=== PATIENT | female | born 1960 | race Asian ===

== ENCOUNTER 2018-05-23 19:13 | Inpatient (IN) | payer BC ==
[~2018-05-23] VITALS: Ht 160 cm; Wt 95.4 kg
[2018-05-23 19:13] VITALS: BP 128/71
[2018-05-23 20:00] VITALS: BP 128/71
[2018-05-23] MEDS ORDERED: DEXTROSE 50% WATER 50ML SYRINGE IV PRN (20:30)
[2018-05-23] MEDS ORDERED: MECLIZINE 25MG TABLET PO PRN (20:30)
[2018-05-23] MEDS ORDERED: ZOLPIDEM TARTRATE 5MG TABLET PO PRN (20:30)
[2018-05-23] MEDS ORDERED: ACETAMINOPHEN 325MG TABLET PO PRN (20:30)
[2018-05-23] MEDS ORDERED: NON FORMULARY PATIENT HOME MED XX SCH (20:30)
[2018-05-23] MEDS: BLOOD SUGAR DIAGNOSTIC STRIP TEST SCH (21:00)
[2018-05-23] MEDS ORDERED: EZETIMIBE 10MG TABLET PO SCH (21:15)
[2018-05-23] MEDS: ATORVASTATIN CALCIUM 40MG TABLET PO SCH (23:22)
[2018-05-23] MEDS: HYDRALAZINE HCL 25MG TABLET PO SCH (23:23)
[2018-05-23] MEDS: INSULIN LISPRO 100 UNITS/ML SUBCUT SCH (23:24)
[2018-05-24] MEDS ORDERED: DULA1.5P SQ (03:35)
[2018-05-24] MEDS ORDERED: IRBE300T42 MT (03:36)
[2018-05-24] MEDS: HYDRALAZINE HCL 25MG TABLET PO SCH ×3 (06:00→20:59)
[2018-05-24 06:39] LABS: HEMATOCRIT. 38.5 % (36.0-48.0); HEMOGLOBIN. 13.3 g/dL (12.0-16.0); MEAN CORPUSCULAR VOLUME 89.9 fL (81.0-99.0); MEAN PLATELET VOLUME 7.7 fl (7.4-10.4); PLATELET 273 x1000/uL (130-400); RED BLOOD CELL COUNT 4.28 mill/uL (4.2-5.4); RED CELL DISTRIBUTION WIDTH 14.1 % (11.6-14.6)
[2018-05-24] MEDS: BLOOD SUGAR DIAGNOSTIC STRIP TEST SCH ×4 (06:48→21:02)
[2018-05-24] MEDS: INSULIN LISPRO 100 UNITS/ML SUBCUT SCH ×4 (07:01→21:02)
[2018-05-24] MEDS: LEVOTHYROXINE SODIUM 125MCG TABLET PO SCH (07:03)
[2018-05-24 08:00] VITALS: BP 143/82
[2018-05-24] MEDS: GABAPENTIN 300MG CAPSULE PO SCH ×3 (08:41→17:04)
[2018-05-24] MEDS: CLOPIDOGREL 75MG TABLET PO SCH (08:41)
[2018-05-24] MEDS: DOCUSATE SODIUM 100MG CAPSULE PO SCH ×2 (08:41→17:04)
[2018-05-24] MEDS: DILTIAZEM HCL 120MG CAPSULE CD 24HR PO SCH (08:42)
[2018-05-24] MEDS: ASPIRIN 325MG EC TABLET PO SCH (08:42)
[2018-05-24] MEDS: FOLIC ACID 1MG TABLET PO SCH (08:42)
[2018-05-24] MEDS: INDAPAMIDE 1.25MG TABLET PO SCH (09:00)
[2018-05-24 12:06] LABS: PLATELET ESTIMATE NORMAL
[2018-05-24 15:22] LABS: CLARITY URINE CLEAR (CLEAR); COLOR URINE YELLOW (YELLOW); KETONES URINE NEGATIVE (NEGATIVE); LEUKOCYTE ESTERASE URINE 1+ (NEGATIVE); NITRITE URINE NEGATIVE (NEGATIVE); OCCULT BLOOD URINE NEGATIVE (NEGATIVE); PH URINE 6.5 (4.5-8.0); PROTEIN URINE 3+ (NEGATIVE); SPECIFIC GRAVITY URINE 1.016 (1.005-1.030); UROBILINOGEN URINE 0.2 E.U./dL (0.2-1.0)
[2018-05-24] MEDS: EZETIMIBE 10MG TABLET PO SCH (17:04)
[2018-05-24 20:00] VITALS: BP 133/74
[2018-05-24] MEDS: ATORVASTATIN CALCIUM 40MG TABLET PO SCH (20:59)
[2018-05-25] MEDS: BLOOD SUGAR DIAGNOSTIC STRIP TEST SCH ×4 (06:08→21:13)
[2018-05-25] MEDS: LEVOTHYROXINE SODIUM 125MCG TABLET PO SCH (06:08)
[2018-05-25] MEDS: HYDRALAZINE HCL 25MG TABLET PO SCH ×3 (06:09→21:13)
[2018-05-25] MEDS: INSULIN LISPRO 100 UNITS/ML SUBCUT SCH ×4 (06:11→21:34)
[2018-05-25 06:33] LABS: EOSINOPHILS % 2.8 % (0.0-5.0); HEMATOCRIT. 38.1 % (36.0-48.0); HEMOGLOBIN. 13.1 g/dL (12.0-16.0); LYMPHOCYTES % 44.9 % (20.0-50.0); MEAN CORPUSCULAR VOLUME 89.9 fL (81.0-99.0); MEAN PLATELET VOLUME 7.8 fl (7.4-10.4); MONOCYTES % 10.6 % (2.0-8.0); NEUTROPHILS % 40.7 % (40.0-76.0); PLATELET 257 x1000/uL (130-400); RED BLOOD CELL COUNT 4.24 mill/uL (4.2-5.4); RED CELL DISTRIBUTION WIDTH 13.6 % (11.6-14.6)
[2018-05-25] MEDS: DILTIAZEM HCL 120MG CAPSULE CD 24HR PO SCH (08:35)
[2018-05-25] MEDS: ASPIRIN 325MG EC TABLET PO SCH (08:36)
[2018-05-25] MEDS: GABAPENTIN 300MG CAPSULE PO SCH ×3 (08:36→17:16)
[2018-05-25] MEDS: CLOPIDOGREL 75MG TABLET PO SCH (08:36)
[2018-05-25] MEDS: FOLIC ACID 1MG TABLET PO SCH (08:36)
[2018-05-25] MEDS: DOCUSATE SODIUM 100MG CAPSULE PO SCH (08:36)
[2018-05-25 08:42] VITALS: BP 141/82
[2018-05-25] MEDS: MECLIZINE 25MG TABLET PO SCH ×3 (08:44→21:13)
[2018-05-25] MEDS: FOLIC ACID/VITAMIN B COMP W-C TABLET PO SCH (08:44)
[2018-05-25] MEDS: LOSARTAN POTASSIUM 25 MG TABLET PO SCH (08:44)
[2018-05-25] MEDS: DOCUSATE SODIUM 250MG CAPSULE PO SCH (08:45)
[2018-05-25] MEDS: INDAPAMIDE 1.25MG TABLET PO SCH ×2 (09:00→17:14)
[2018-05-25] MEDS ORDERED: GLIMEPIRIDE 2MG TABLET PO NR (09:15)
[2018-05-25 13:16] VITALS: BP 136/76
[2018-05-25] MEDS: EZETIMIBE 10MG TABLET PO SCH (17:16)
[2018-05-25] MEDS ORDERED: SODIUM CHL 0.45% + KCL 20MEQ/L 1,000 ML IV SCH (18:00)
[2018-05-25] MEDS: DEXT 5%/0.45% NACL KCL 20MEQ/L 1,000 ML IV SCH ×2 (19:16→22:42)
[2018-05-25 20:00] VITALS: BP 129/64
[2018-05-25 20:18] LABS: CLARITY URINE CLEAR (CLEAR); COLOR URINE YELLOW (YELLOW); KETONES URINE NEGATIVE (NEGATIVE); LEUKOCYTE ESTERASE URINE NEGATIVE (NEGATIVE); NITRITE URINE NEGATIVE (NEGATIVE); OCCULT BLOOD URINE NEGATIVE (NEGATIVE); PH URINE 6.5 (4.5-8.0); PROTEIN URINE 3+ (NEGATIVE); SPECIFIC GRAVITY URINE 1.012 (1.005-1.030); UROBILINOGEN URINE 0.2 E.U./dL (0.2-1.0)
[2018-05-25] MEDS: ATORVASTATIN CALCIUM 40MG TABLET PO SCH (21:13)
[2018-05-26] MEDS ORDERED: INDA1.255 MT (02:02)
[2018-05-26] MEDS ORDERED: LEVO125T8 MT (02:02)
[2018-05-26] MEDS ORDERED: ASPI-986 MT (02:02)
[2018-05-26] MEDS ORDERED: DILT240T12 PO (02:02)
[2018-05-26] MEDS ORDERED: ATOR10TA MT (02:03)
[2018-05-26] MEDS ORDERED: CLOP75TA16 MT (02:03)
[2018-05-26] MEDS: HYDRALAZINE HCL 25MG TABLET PO SCH ×3 (06:00→21:45)
[2018-05-26] MEDS: MECLIZINE 25MG TABLET PO SCH ×3 (06:00→21:29)
[2018-05-26] MEDS: GLIMEPIRIDE 2MG TABLET PO SCH (06:00)
[2018-05-26] MEDS: BLOOD SUGAR DIAGNOSTIC STRIP TEST SCH ×4 (06:00→21:33)
[2018-05-26] MEDS: LEVOTHYROXINE SODIUM 125MCG TABLET PO SCH (06:01)
[2018-05-26 07:12] LABS: CHLORIDE 112 mEq/L (98-107)
[2018-05-26 07:13] LABS: FOLIC ACID (FOLATE) SERUM >20 ng/mL ng/mL (>5.38)
[2018-05-26 07:15] VITALS: BP 129/64
[2018-05-26 07:19] LABS: LDL CHOLESTEROL 153 mg/dL (5-100)
[2018-05-26 07:20] LABS: HDL CHOLESTEROL 38 mg/dL (40-59)
[2018-05-26 07:24] LABS: VITAMIN B12 SERUM 627 pg/mL (211-911)
[2018-05-26] MEDS: DOCUSATE SODIUM 250MG CAPSULE PO SCH ×2 (09:00→09:05)
[2018-05-26] MEDS: INSULIN LISPRO 100 UNITS/ML SUBCUT SCH ×4 (09:00→21:00)
[2018-05-26] MEDS: CLOPIDOGREL 75MG TABLET PO SCH (09:04)
[2018-05-26] MEDS: FOLIC ACID/VITAMIN B COMP W-C TABLET PO SCH (09:05)
[2018-05-26] MEDS: ASPIRIN 325MG EC TABLET PO SCH (09:05)
[2018-05-26] MEDS: LOSARTAN POTASSIUM 25 MG TABLET PO SCH (09:05)
[2018-05-26] MEDS: FOLIC ACID 1MG TABLET PO SCH (09:05)
[2018-05-26] MEDS: GABAPENTIN 300MG CAPSULE PO SCH ×3 (09:05→16:53)
[2018-05-26] MEDS: INDAPAMIDE 1.25MG TABLET PO SCH (09:05)
[2018-05-26] MEDS: DILTIAZEM HCL 120MG CAPSULE CD 24HR PO SCH (09:06)
[2018-05-26] MEDS: DEXT 5%/0.45% NACL KCL 20MEQ/L 1,000 ML IV SCH (12:54)
[2018-05-26 14:20] VITALS: BP 137/70
[2018-05-26] MEDS: EZETIMIBE 10MG TABLET PO SCH (16:53)
[2018-05-26 20:00] VITALS: BP 108/59
[2018-05-26] MEDS: ATORVASTATIN CALCIUM 40MG TABLET PO SCH (21:28)
[2018-05-26] MEDS: TRULICITY 1.5 MG/0.5 ML SQ SCH (21:56)
[2018-05-27] MEDS: DEXT 5%/0.45% NACL KCL 20MEQ/L 1,000 ML IV SCH ×2 (01:48→21:15)
[2018-05-27] MEDS: MECLIZINE 25MG TABLET PO SCH ×3 (05:56→17:05)
[2018-05-27] MEDS: HYDRALAZINE HCL 25MG TABLET PO SCH ×3 (05:56→21:25)
[2018-05-27] MEDS: INSULIN LISPRO 100 UNITS/ML SUBCUT SCH ×4 (05:57→21:00)
[2018-05-27] MEDS: BLOOD SUGAR DIAGNOSTIC STRIP TEST SCH ×4 (05:57→21:36)
[2018-05-27] MEDS: GLIMEPIRIDE 2MG TABLET PO SCH (06:00)
[2018-05-27] MEDS: LEVOTHYROXINE SODIUM 125MCG TABLET PO SCH (06:00)
[2018-05-27 08:00] VITALS: BP 114/57
[2018-05-27] MEDS: LOSARTAN POTASSIUM 25 MG TABLET PO SCH (08:20)
[2018-05-27] MEDS: INDAPAMIDE 1.25MG TABLET PO SCH (08:20)
[2018-05-27] MEDS: FOLIC ACID 1MG TABLET PO SCH (08:20)
[2018-05-27] MEDS: DOCUSATE SODIUM 250MG CAPSULE PO SCH (08:20)
[2018-05-27] MEDS: FOLIC ACID/VITAMIN B COMP W-C TABLET PO SCH (08:20)
[2018-05-27] MEDS: ASPIRIN 325MG EC TABLET PO SCH (08:20)
[2018-05-27] MEDS: CLOPIDOGREL 75MG TABLET PO SCH (08:20)
[2018-05-27] MEDS: GABAPENTIN 300MG CAPSULE PO SCH ×3 (08:20→17:05)
[2018-05-27] MEDS: DILTIAZEM HCL 120MG CAPSULE CD 24HR PO SCH (08:21)
[2018-05-27] MEDS: EZETIMIBE 10MG TABLET PO SCH (17:05)
[2018-05-27 20:00] VITALS: BP 149/74
[2018-05-27] MEDS: ATORVASTATIN CALCIUM 40MG TABLET PO SCH (21:24)
[2018-05-28] MEDS: MECLIZINE 25MG TABLET PO SCH ×4 (00:31→18:32)
[2018-05-28] MEDS: DEXT 5%/0.45% NACL KCL 20MEQ/L 1,000 ML IV SCH ×3 (04:50→22:32)
[2018-05-28] MEDS: LEVOTHYROXINE SODIUM 125MCG TABLET PO SCH (06:06)
[2018-05-28] MEDS: HYDRALAZINE HCL 25MG TABLET PO SCH ×3 (06:06→22:29)
[2018-05-28] MEDS: GLIMEPIRIDE 2MG TABLET PO SCH (06:06)
[2018-05-28] MEDS: BLOOD SUGAR DIAGNOSTIC STRIP TEST SCH ×4 (06:06→21:00)
[2018-05-28] MEDS: INSULIN LISPRO 100 UNITS/ML SUBCUT SCH ×4 (06:07→21:00)
[2018-05-28 08:14] VITALS: BP 133/73
[2018-05-28 09:47] VITALS: BP 117/67
[2018-05-28] MEDS: DILTIAZEM HCL 120MG CAPSULE CD 24HR PO SCH (09:51)
[2018-05-28] MEDS: DOCUSATE SODIUM 250MG CAPSULE PO SCH (09:51)
[2018-05-28] MEDS: FOLIC ACID 1MG TABLET PO SCH (09:51)
[2018-05-28] MEDS: LOSARTAN POTASSIUM 25 MG TABLET PO SCH (09:52)
[2018-05-28] MEDS: GABAPENTIN 300MG CAPSULE PO SCH ×3 (09:52→18:03)
[2018-05-28] MEDS: ASPIRIN 325MG EC TABLET PO SCH (09:52)
[2018-05-28] MEDS: FOLIC ACID/VITAMIN B COMP W-C TABLET PO SCH (09:52)
[2018-05-28] MEDS: INDAPAMIDE 1.25MG TABLET PO SCH (09:52)
[2018-05-28] MEDS: CLOPIDOGREL 75MG TABLET PO SCH (09:52)
[2018-05-28] MEDS: EZETIMIBE 10MG TABLET PO SCH (18:03)
[2018-05-28 20:11] VITALS: BP 160/86
[2018-05-28] MEDS: ATORVASTATIN CALCIUM 40MG TABLET PO SCH (20:26)
[2018-05-29] MEDS: MECLIZINE 25MG TABLET PO SCH ×5 (01:21→23:50)
[2018-05-29] MEDS: BLOOD SUGAR DIAGNOSTIC STRIP TEST SCH ×3 (06:23→21:22)
[2018-05-29] MEDS: HYDRALAZINE HCL 25MG TABLET PO SCH ×3 (06:28→22:12)
[2018-05-29] MEDS: LEVOTHYROXINE SODIUM 125MCG TABLET PO SCH (06:28)
[2018-05-29] MEDS: GLIMEPIRIDE 2MG TABLET PO SCH (06:29)
[2018-05-29] MEDS: DEXT 5%/0.45% NACL KCL 20MEQ/L 1,000 ML IV SCH ×2 (06:30→22:14)
[2018-05-29 08:00] VITALS: BP 155/86
[2018-05-29] MEDS: FOLIC ACID 1MG TABLET PO SCH (09:18)
[2018-05-29] MEDS: GABAPENTIN 300MG CAPSULE PO SCH ×3 (09:18→17:37)
[2018-05-29] MEDS: INDAPAMIDE 1.25MG TABLET PO SCH (09:18)
[2018-05-29] MEDS: CLOPIDOGREL 75MG TABLET PO SCH (09:18)
[2018-05-29] MEDS: DILTIAZEM HCL 120MG CAPSULE CD 24HR PO SCH (09:18)
[2018-05-29] MEDS: ASPIRIN 325MG EC TABLET PO SCH (09:18)
[2018-05-29] MEDS: DOCUSATE SODIUM 250MG CAPSULE PO SCH (09:19)
[2018-05-29] MEDS: FOLIC ACID/VITAMIN B COMP W-C TABLET PO SCH (09:19)
[2018-05-29] MEDS: LOSARTAN POTASSIUM 25 MG TABLET PO SCH (09:19)
[2018-05-29] MEDS: LORATADINE 10MG TABLET PO SCH (09:22)
[2018-05-29] MEDS: FLUTICASONE PROPIONATE 50MCG/SPRAY BOTTLE BOTHNSTRLS SCH ×2 (10:53→22:12)
[2018-05-29] MEDS: INSULIN LISPRO 100 UNITS/ML SUBCUT SCH ×3 (13:00→21:00)
[2018-05-29] MEDS: BISACODYL 5MG TABLET PO PRN (13:45)
[2018-05-29] MEDS: EZETIMIBE 10MG TABLET PO SCH (17:37)
[2018-05-29 20:00] VITALS: BP 125/77
[2018-05-29] MEDS: ATORVASTATIN CALCIUM 40MG TABLET PO SCH (22:07)
[2018-05-30] MEDS: BLOOD SUGAR DIAGNOSTIC STRIP TEST SCH ×4 (05:40→20:20)
[2018-05-30] MEDS: HYDRALAZINE HCL 25MG TABLET PO SCH ×3 (05:40→22:18)
[2018-05-30] MEDS: GLIMEPIRIDE 2MG TABLET PO SCH (05:41)
[2018-05-30] MEDS: MECLIZINE 25MG TABLET PO SCH ×4 (06:04→23:51)
[2018-05-30] MEDS: LEVOTHYROXINE SODIUM 125MCG TABLET PO SCH (06:04)
[2018-05-30] MEDS: INSULIN LISPRO 100 UNITS/ML SUBCUT SCH ×4 (06:44→20:22)
[2018-05-30 07:10] LABS: EOSINOPHILS % 3.3 % (0.0-5.0); HEMATOCRIT. 40.3 % (36.0-48.0); HEMOGLOBIN. 13.6 g/dL (12.0-16.0); LYMPHOCYTES % 31.3 % (20.0-50.0); MEAN CORPUSCULAR HEMOGLOBIN 30.7 pg (28.0-32.0); MEAN CORPUSCULAR VOLUME 90.8 fL (81.0-99.0); MEAN PLATELET VOLUME 7.7 fl (7.4-10.4); MONOCYTES % 9.3 % (2.0-8.0); NEUTROPHILS % 55.1 % (40.0-76.0); PLATELET 325 x1000/uL (130-400); RED BLOOD CELL COUNT 4.44 mill/uL (4.2-5.4); RED CELL DISTRIBUTION WIDTH 13.7 % (11.6-14.6)
[2018-05-30 07:46] LABS: CHLORIDE 113 mEq/L (98-107)
[2018-05-30 08:14] VITALS: BP 143/79
[2018-05-30] MEDS ORDERED: DEXTROSE 50% WATER 50ML SYRINGE IV PRN (08:45)
[2018-05-30] MEDS: FOLIC ACID/VITAMIN B COMP W-C TABLET PO SCH (09:27)
[2018-05-30] MEDS: DILTIAZEM HCL 120MG CAPSULE CD 24HR PO SCH (09:27)
[2018-05-30] MEDS: FLUTICASONE PROPIONATE 50MCG/SPRAY BOTTLE BOTHNSTRLS SCH ×2 (09:28→22:12)
[2018-05-30] MEDS: LOSARTAN POTASSIUM 25 MG TABLET PO SCH (09:28)
[2018-05-30] MEDS: ASPIRIN 325MG EC TABLET PO SCH (09:28)
[2018-05-30] MEDS: INDAPAMIDE 1.25MG TABLET PO SCH (09:28)
[2018-05-30] MEDS: CLOPIDOGREL 75MG TABLET PO SCH (09:28)
[2018-05-30] MEDS: DOCUSATE SODIUM 250MG CAPSULE PO SCH (09:28)
[2018-05-30] MEDS: GABAPENTIN 300MG CAPSULE PO SCH ×3 (09:28→17:53)
[2018-05-30] MEDS: LORATADINE 10MG TABLET PO SCH (09:28)
[2018-05-30] MEDS: FOLIC ACID 1MG TABLET PO SCH (09:28)
[2018-05-30] MEDS: CITRIC ACID/SODIUM CITRATE SOLN 30ML UDC PO SCH ×3 (13:27→17:57)
[2018-05-30] MEDS: EZETIMIBE 10MG TABLET PO SCH (17:50)
[2018-05-30] MEDS: SODIUM CHLORIDE 0.9% 1,000 ML IV SCH (18:00)
[2018-05-30 20:00] VITALS: BP 148/79
[2018-05-30] MEDS: ATORVASTATIN CALCIUM 40MG TABLET PO SCH (21:00)
[2018-05-31 06:40] LABS: BASOPHILS % 1.3 % (0.0-2.0); EOSINOPHILS % 3.3 % (0.0-5.0); HEMATOCRIT. 38.2 % (36.0-48.0); HEMOGLOBIN. 12.9 g/dL (12.0-16.0); MEAN CORPUSCULAR HEMOGLOBIN 30.9 pg (28.0-32.0); MEAN PLATELET VOLUME 7.7 fl (7.4-10.4); MONOCYTES % 9.6 % (2.0-8.0); NEUTROPHILS % 54.8 % (40.0-76.0); PLATELET 298 x1000/uL (130-400); RED BLOOD CELL COUNT 4.19 mill/uL (4.2-5.4); RED CELL DISTRIBUTION WIDTH 13.6 % (11.6-14.6)
[2018-05-31] MEDS: MECLIZINE 25MG TABLET PO SCH ×4 (06:52→23:53)
[2018-05-31] MEDS: LEVOTHYROXINE SODIUM 125MCG TABLET PO SCH (06:52)
[2018-05-31] MEDS: GLIMEPIRIDE 2MG TABLET PO SCH (06:52)
[2018-05-31] MEDS: SODIUM CHLORIDE 0.9% 1,000 ML IV SCH (06:54)
[2018-05-31] MEDS: HYDRALAZINE HCL 25MG TABLET PO SCH ×3 (06:57→21:31)
[2018-05-31] MEDS: INSULIN LISPRO 100 UNITS/ML SUBCUT SCH ×4 (06:59→21:00)
[2018-05-31] MEDS: BLOOD SUGAR DIAGNOSTIC STRIP TEST SCH ×4 (06:59→21:31)
[2018-05-31 07:00] VITALS: BP 153/81
[2018-05-31 08:06] VITALS: BP 149/80
[2018-05-31] MEDS: CLOPIDOGREL 75MG TABLET PO SCH (08:35)
[2018-05-31] MEDS: DILTIAZEM HCL 120MG CAPSULE CD 24HR PO SCH (08:36)
[2018-05-31] MEDS: LORATADINE 10MG TABLET PO SCH (08:36)
[2018-05-31] MEDS: FOLIC ACID 1MG TABLET PO SCH (08:36)
[2018-05-31] MEDS: LOSARTAN POTASSIUM 25 MG TABLET PO SCH (08:36)
[2018-05-31] MEDS: DOCUSATE SODIUM 250MG CAPSULE PO SCH (08:36)
[2018-05-31] MEDS: GABAPENTIN 300MG CAPSULE PO SCH ×3 (08:36→16:22)
[2018-05-31] MEDS: INDAPAMIDE 1.25MG TABLET PO SCH (08:36)
[2018-05-31] MEDS: FOLIC ACID/VITAMIN B COMP W-C TABLET PO SCH (08:36)
[2018-05-31] MEDS: ASPIRIN 325MG EC TABLET PO SCH (08:36)
[2018-05-31] MEDS: FLUTICASONE PROPIONATE 50MCG/SPRAY BOTTLE BOTHNSTRLS SCH ×2 (08:38→21:32)
[2018-05-31 11:19] LABS: CREATINE KINASE 42 IU/L (26-192)
[2018-05-31] MEDS: CITRIC ACID/SODIUM CITRATE SOLN 30ML UDC PO SCH ×2 (13:00→16:23)
[2018-05-31] MEDS: EZETIMIBE 10MG TABLET PO SCH (16:22)
[2018-05-31 20:00] VITALS: BP 154/86
[2018-05-31] MEDS: ATORVASTATIN CALCIUM 40MG TABLET PO SCH (21:31)
[2018-05-31 21:50] LABS: CLARITY URINE CLEAR (CLEAR); COLOR URINE YELLOW (YELLOW); KETONES URINE NEGATIVE (NEGATIVE); LEUKOCYTE ESTERASE URINE NEGATIVE (NEGATIVE); NITRITE URINE NEGATIVE (NEGATIVE); OCCULT BLOOD URINE NEGATIVE (NEGATIVE); PROTEIN URINE 2+ (NEGATIVE); SPECIFIC GRAVITY URINE 1.014 (1.005-1.030); UROBILINOGEN URINE 0.2 E.U./dL (0.2-1.0)
[2018-06-01] MEDS: LEVOTHYROXINE SODIUM 125MCG TABLET PO SCH (06:00)
[2018-06-01] MEDS: MECLIZINE 25MG TABLET PO SCH ×4 (06:00→23:28)
[2018-06-01] MEDS: GLIMEPIRIDE 2MG TABLET PO SCH (06:00)
[2018-06-01] MEDS: HYDRALAZINE HCL 25MG TABLET PO SCH ×3 (06:02→21:12)
[2018-06-01] MEDS: INSULIN LISPRO 100 UNITS/ML SUBCUT SCH ×4 (06:02→21:00)
[2018-06-01] MEDS: BLOOD SUGAR DIAGNOSTIC STRIP TEST SCH ×4 (06:02→21:12)
[2018-06-01 07:00] LABS: EOSINOPHILS % 3.2 % (0.0-5.0); HEMATOCRIT. 39.3 % (36.0-48.0); HEMOGLOBIN. 13.2 g/dL (12.0-16.0); LYMPHOCYTES % 27.7 % (20.0-50.0); MEAN CORPUSCULAR HEMOGLOBIN 30.5 pg (28.0-32.0); MEAN PLATELET VOLUME 7.5 fl (7.4-10.4); MONOCYTES % 9.5 % (2.0-8.0); NEUTROPHILS % 58.6 % (40.0-76.0); PLATELET 318 x1000/uL (130-400); RED BLOOD CELL COUNT 4.31 mill/uL (4.2-5.4); RED CELL DISTRIBUTION WIDTH 13.5 % (11.6-14.6)
[2018-06-01] MEDS: FOLIC ACID/VITAMIN B COMP W-C TABLET PO SCH (07:55)
[2018-06-01] MEDS: DOCUSATE SODIUM 250MG CAPSULE PO SCH (07:55)
[2018-06-01] MEDS: CLOPIDOGREL 75MG TABLET PO SCH (07:55)
[2018-06-01] MEDS: FOLIC ACID 1MG TABLET PO SCH (07:55)
[2018-06-01] MEDS: GABAPENTIN 300MG CAPSULE PO SCH ×3 (07:55→17:25)
[2018-06-01] MEDS: ASPIRIN 325MG EC TABLET PO SCH (07:55)
[2018-06-01] MEDS: CITRIC ACID/SODIUM CITRATE SOLN 30ML UDC PO SCH ×6 (07:55→17:25)
[2018-06-01] MEDS: INDAPAMIDE 1.25MG TABLET PO SCH (07:56)
[2018-06-01] MEDS: LORATADINE 10MG TABLET PO SCH (07:56)
[2018-06-01] MEDS: LOSARTAN POTASSIUM 25 MG TABLET PO SCH (07:56)
[2018-06-01] MEDS: DILTIAZEM HCL 120MG CAPSULE CD 24HR PO SCH (07:56)
[2018-06-01 07:57] VITALS: BP 151/82
[2018-06-01] MEDS: FLUTICASONE PROPIONATE 50MCG/SPRAY BOTTLE BOTHNSTRLS SCH ×2 (07:57→21:12)
[2018-06-01] MEDS ORDERED: ONDANSETRON HCL 4MG/2ML INJ IV PRN (09:45)
[2018-06-01] MEDS: SERTRALINE HCL 25MG TABLET PO SCH (16:09)
[2018-06-01] MEDS: EZETIMIBE 10MG TABLET PO SCH (17:25)
[2018-06-01] MEDS: BISACODYL 5MG TABLET PO PRN (18:04)
[2018-06-01] MEDS ORDERED: NA PHOS,M-B/NA PHOS,DI-BA ENEMA 118ML PR PRN (20:00)
[2018-06-01 20:10] VITALS: BP 133/74
[2018-06-01] MEDS: ATORVASTATIN CALCIUM 40MG TABLET PO SCH (21:12)
[2018-06-02] MEDS: MECLIZINE 25MG TABLET PO SCH ×3 (05:39→17:00)
[2018-06-02] MEDS: HYDRALAZINE HCL 25MG TABLET PO SCH ×3 (05:40→21:13)
[2018-06-02] MEDS: BLOOD SUGAR DIAGNOSTIC STRIP TEST SCH ×4 (06:27→21:13)
[2018-06-02] MEDS: INSULIN LISPRO 100 UNITS/ML SUBCUT SCH ×4 (06:28→21:00)
[2018-06-02] MEDS: LEVOTHYROXINE SODIUM 125MCG TABLET PO SCH (06:28)
[2018-06-02 08:00] VITALS: BP 139/82
[2018-06-02] MEDS: CITRIC ACID/SODIUM CITRATE SOLN 30ML UDC PO SCH ×3 (09:19→16:59)
[2018-06-02] MEDS ORDERED: NA PHOS,M-B/NA PHOS,DI-BA ENEMA 118ML PR NR (09:45)
[2018-06-02] MEDS ORDERED: SORBITOL 70% SOLN 30ML PO NR (09:45)
[2018-06-02] MEDS: FOLIC ACID/VITAMIN B COMP W-C TABLET PO SCH (09:51)
[2018-06-02] MEDS: SERTRALINE HCL 25MG TABLET PO SCH (09:51)
[2018-06-02] MEDS: INDAPAMIDE 1.25MG TABLET PO SCH (09:51)
[2018-06-02] MEDS: LOSARTAN POTASSIUM 50 MG TABLET PO SCH (09:51)
[2018-06-02] MEDS: DOCUSATE SODIUM 250MG CAPSULE PO SCH (09:51)
[2018-06-02] MEDS: LORATADINE 10MG TABLET PO SCH (09:51)
[2018-06-02] MEDS: FOLIC ACID 1MG TABLET PO SCH (09:52)
[2018-06-02] MEDS: ASPIRIN 325MG EC TABLET PO SCH (09:52)
[2018-06-02] MEDS: GABAPENTIN 300MG CAPSULE PO SCH ×3 (09:52→17:00)
[2018-06-02] MEDS: CLOPIDOGREL 75MG TABLET PO SCH (09:52)
[2018-06-02] MEDS: DILTIAZEM HCL 120MG CAPSULE CD 24HR PO SCH (09:52)
[2018-06-02] MEDS: GLIMEPIRIDE 2MG TABLET PO SCH (09:52)
[2018-06-02] MEDS: FLUTICASONE PROPIONATE 50MCG/SPRAY BOTTLE BOTHNSTRLS SCH ×2 (09:57→20:58)
[2018-06-02] MEDS: TRULICITY 1.5 MG/0.5 ML SQ SCH (09:58)
[2018-06-02] MEDS: EZETIMIBE 10MG TABLET PO SCH (16:59)
[2018-06-02 20:00] VITALS: BP 104/61
[2018-06-02] MEDS: ATORVASTATIN CALCIUM 40MG TABLET PO SCH (20:58)
[2018-06-02] MEDS: NYSTATIN POWDER 15GM TOP SCH (20:58)
[2018-06-03] MEDS: MECLIZINE 25MG TABLET PO SCH ×3 (02:16→17:45)
[2018-06-03] MEDS: HYDRALAZINE HCL 25MG TABLET PO SCH ×3 (06:00→21:28)
[2018-06-03] MEDS: BLOOD SUGAR DIAGNOSTIC STRIP TEST SCH ×4 (06:59→21:29)
[2018-06-03] MEDS: GLIMEPIRIDE 2MG TABLET PO SCH (06:59)
[2018-06-03] MEDS: LEVOTHYROXINE SODIUM 125MCG TABLET PO SCH (06:59)
[2018-06-03 07:00] VITALS: BP 138/78
[2018-06-03] MEDS: INSULIN LISPRO 100 UNITS/ML SUBCUT SCH ×4 (09:00→21:00)
[2018-06-03] MEDS: FLUTICASONE PROPIONATE 50MCG/SPRAY BOTTLE BOTHNSTRLS SCH ×2 (10:26→21:00)
[2018-06-03] MEDS: CITRIC ACID/SODIUM CITRATE SOLN 30ML UDC PO SCH ×3 (10:26→17:00)
[2018-06-03] MEDS: INDAPAMIDE 1.25MG TABLET PO SCH (10:27)
[2018-06-03] MEDS: ASPIRIN 325MG EC TABLET PO SCH (10:27)
[2018-06-03] MEDS: DILTIAZEM HCL 120MG CAPSULE CD 24HR PO SCH (10:27)
[2018-06-03] MEDS: CLOPIDOGREL 75MG TABLET PO SCH (10:28)
[2018-06-03] MEDS: GABAPENTIN 300MG CAPSULE PO SCH ×3 (10:28→17:45)
[2018-06-03] MEDS: SERTRALINE HCL 25MG TABLET PO SCH (10:28)
[2018-06-03] MEDS: FOLIC ACID/VITAMIN B COMP W-C TABLET PO SCH (10:28)
[2018-06-03] MEDS: FOLIC ACID 1MG TABLET PO SCH (10:28)
[2018-06-03] MEDS: LOSARTAN POTASSIUM 50 MG TABLET PO SCH (10:28)
[2018-06-03] MEDS: DOCUSATE SODIUM 250MG CAPSULE PO SCH (10:29)
[2018-06-03] MEDS: LORATADINE 10MG TABLET PO SCH (10:29)
[2018-06-03] MEDS: NYSTATIN POWDER 15GM TOP SCH ×2 (10:30→17:45)
[2018-06-03] MEDS: EZETIMIBE 10MG TABLET PO SCH (17:45)
[2018-06-03] MEDS: LACTULOSE 20G/30ML UDC PO PRN (19:02)
[2018-06-03 20:00] VITALS: BP 121/65
[2018-06-03] MEDS: ATORVASTATIN CALCIUM 40MG TABLET PO SCH (21:28)
[2018-06-04] MEDS: MECLIZINE 25MG TABLET PO SCH ×3 (02:12→17:23)
[2018-06-04] MEDS: LEVOTHYROXINE SODIUM 125MCG TABLET PO SCH (06:09)
[2018-06-04] MEDS: BLOOD SUGAR DIAGNOSTIC STRIP TEST SCH ×4 (06:10→20:20)
[2018-06-04] MEDS: HYDRALAZINE HCL 25MG TABLET PO SCH ×3 (06:10→22:00)
[2018-06-04] MEDS: INSULIN LISPRO 100 UNITS/ML SUBCUT SCH ×4 (06:10→21:00)
[2018-06-04] MEDS: GLIMEPIRIDE 1MG TABLET PO SCH (06:10)
[2018-06-04 08:00] VITALS: BP 133/74
[2018-06-04] MEDS: SERTRALINE HCL 25MG TABLET PO SCH (08:43)
[2018-06-04] MEDS: INDAPAMIDE 1.25MG TABLET PO SCH (08:43)
[2018-06-04] MEDS: GABAPENTIN 300MG CAPSULE PO SCH ×3 (08:43→17:23)
[2018-06-04] MEDS: FOLIC ACID/VITAMIN B COMP W-C TABLET PO SCH (08:43)
[2018-06-04] MEDS: ASPIRIN 325MG EC TABLET PO SCH (08:43)
[2018-06-04] MEDS: FOLIC ACID 1MG TABLET PO SCH (08:43)
[2018-06-04] MEDS: DOCUSATE SODIUM 250MG CAPSULE PO SCH (08:43)
[2018-06-04] MEDS: LOSARTAN POTASSIUM 50 MG TABLET PO SCH (08:43)
[2018-06-04] MEDS: CLOPIDOGREL 75MG TABLET PO SCH (08:43)
[2018-06-04] MEDS: LORATADINE 10MG TABLET PO SCH (08:43)
[2018-06-04] MEDS: CITRIC ACID/SODIUM CITRATE SOLN 30ML UDC PO SCH ×3 (08:44→17:23)
[2018-06-04] MEDS: DILTIAZEM HCL 120MG CAPSULE CD 24HR PO SCH (08:44)
[2018-06-04] MEDS: NYSTATIN POWDER 15GM TOP SCH ×2 (08:44→17:27)
[2018-06-04] MEDS: FLUTICASONE PROPIONATE 50MCG/SPRAY BOTTLE BOTHNSTRLS SCH ×2 (08:45→20:20)
[2018-06-04] MEDS: EZETIMIBE 10MG TABLET PO SCH (17:23)
[2018-06-04 20:00] VITALS: BP 98/52
[2018-06-04] MEDS: ATORVASTATIN CALCIUM 40MG TABLET PO SCH (20:19)
[2018-06-05] MEDS: MECLIZINE 25MG TABLET PO SCH ×3 (01:22→17:49)
[2018-06-05] MEDS: GLIMEPIRIDE 1MG TABLET PO SCH (06:12)
[2018-06-05] MEDS: LEVOTHYROXINE SODIUM 125MCG TABLET PO SCH (06:12)
[2018-06-05] MEDS: BLOOD SUGAR DIAGNOSTIC STRIP TEST SCH ×4 (06:13→21:10)
[2018-06-05] MEDS: HYDRALAZINE HCL 25MG TABLET PO SCH ×3 (06:13→21:10)
[2018-06-05] MEDS: INSULIN LISPRO 100 UNITS/ML SUBCUT SCH ×4 (07:20→21:00)
[2018-06-05 08:00] VITALS: BP 153/82
[2018-06-05] MEDS: CITRIC ACID/SODIUM CITRATE SOLN 30ML UDC PO SCH ×3 (08:41→17:49)
[2018-06-05] MEDS: FOLIC ACID/VITAMIN B COMP W-C TABLET PO SCH (08:41)
[2018-06-05] MEDS: GABAPENTIN 300MG CAPSULE PO SCH ×3 (08:41→17:49)
[2018-06-05] MEDS: DOCUSATE SODIUM 250MG CAPSULE PO SCH (08:41)
[2018-06-05] MEDS: CLOPIDOGREL 75MG TABLET PO SCH (08:41)
[2018-06-05] MEDS: INDAPAMIDE 1.25MG TABLET PO SCH (08:42)
[2018-06-05] MEDS: SERTRALINE HCL 25MG TABLET PO SCH (08:42)
[2018-06-05] MEDS: ASPIRIN 325MG EC TABLET PO SCH (08:42)
[2018-06-05] MEDS: LORATADINE 10MG TABLET PO SCH (08:42)
[2018-06-05] MEDS: FOLIC ACID 1MG TABLET PO SCH (08:42)
[2018-06-05] MEDS: FLUTICASONE PROPIONATE 50MCG/SPRAY BOTTLE BOTHNSTRLS SCH ×2 (08:44→21:10)
[2018-06-05] MEDS: NYSTATIN POWDER 15GM TOP SCH ×2 (08:44→17:50)
[2018-06-05] MEDS: LOSARTAN POTASSIUM 50 MG TABLET PO SCH (08:55)
[2018-06-05] MEDS: DILTIAZEM HCL 120MG CAPSULE CD 24HR PO SCH (08:55)
[2018-06-05] MEDS: EZETIMIBE 10MG TABLET PO SCH (17:49)
[2018-06-05] MEDS: LACTULOSE 20G/30ML UDC PO PRN (17:56)
[2018-06-05 20:00] VITALS: BP_SYST 101; BP_SYST 102; BP_SYST 138; BP_DIAS 66; BP_DIAS 68
[2018-06-05] MEDS: ATORVASTATIN CALCIUM 40MG TABLET PO SCH (21:09)
[2018-06-06] MEDS: MECLIZINE 25MG TABLET PO SCH ×3 (01:38→17:33)
[2018-06-06] MEDS: BLOOD SUGAR DIAGNOSTIC STRIP TEST SCH ×4 (06:06→21:27)
[2018-06-06] MEDS: GLIMEPIRIDE 1MG TABLET PO SCH (06:06)
[2018-06-06] MEDS: INSULIN LISPRO 100 UNITS/ML SUBCUT SCH ×4 (06:07→21:00)
[2018-06-06] MEDS: HYDRALAZINE HCL 25MG TABLET PO SCH ×3 (06:14→22:11)
[2018-06-06] MEDS: LEVOTHYROXINE SODIUM 125MCG TABLET PO SCH (06:14)
[2018-06-06 07:00] VITALS: BP 144/81
[2018-06-06 07:27] LABS: BASOPHILS % 1.1 % (0.0-2.0); EOSINOPHILS % 3.1 % (0.0-5.0); HEMATOCRIT. 38.6 % (36.0-48.0); HEMOGLOBIN. 13.1 g/dL (12.0-16.0); LYMPHOCYTES % 24.2 % (20.0-50.0); MEAN CORPUSCULAR HEMOGLOBIN 30.6 pg (28.0-32.0); MEAN CORPUSCULAR VOLUME 89.8 fL (81.0-99.0); MEAN PLATELET VOLUME 7.5 fl (7.4-10.4); MONOCYTES % 7.9 % (2.0-8.0); NEUTROPHILS % 63.7 % (40.0-76.0); PLATELET 358 x1000/uL (130-400); RED CELL DISTRIBUTION WIDTH 12.9 % (11.6-14.6)
[2018-06-06] MEDS: DOCUSATE SODIUM 250MG CAPSULE PO SCH (09:09)
[2018-06-06] MEDS: LORATADINE 10MG TABLET PO SCH (09:09)
[2018-06-06] MEDS: GABAPENTIN 300MG CAPSULE PO SCH ×3 (09:09→17:31)
[2018-06-06] MEDS: CLOPIDOGREL 75MG TABLET PO SCH (09:09)
[2018-06-06] MEDS: FOLIC ACID/VITAMIN B COMP W-C TABLET PO SCH (09:09)
[2018-06-06] MEDS: ASPIRIN 325MG EC TABLET PO SCH (09:09)
[2018-06-06] MEDS: INDAPAMIDE 1.25MG TABLET PO SCH (09:09)
[2018-06-06] MEDS: DILTIAZEM HCL 120MG CAPSULE CD 24HR PO SCH (09:09)
[2018-06-06] MEDS: LOSARTAN POTASSIUM 50 MG TABLET PO SCH (09:09)
[2018-06-06] MEDS: FLUTICASONE PROPIONATE 50MCG/SPRAY BOTTLE BOTHNSTRLS SCH ×2 (09:10→22:08)
[2018-06-06] MEDS: FOLIC ACID 1MG TABLET PO SCH (09:10)
[2018-06-06] MEDS: NYSTATIN POWDER 15GM TOP SCH ×2 (09:10→17:32)
[2018-06-06] MEDS: SERTRALINE HCL 25MG TABLET PO SCH (09:10)
[2018-06-06] MEDS: BISACODYL 5MG TABLET PO PRN (09:11)
[2018-06-06] MEDS: EZETIMIBE 10MG TABLET PO SCH (17:31)
[2018-06-06 20:00] VITALS: BP 122/67
[2018-06-06] MEDS: ATORVASTATIN CALCIUM 40MG TABLET PO SCH (22:08)
[2018-06-07] MEDS: MECLIZINE 25MG TABLET PO SCH ×3 (02:51→17:00)
[2018-06-07] MEDS: GLIMEPIRIDE 1MG TABLET PO SCH (06:08)
[2018-06-07] MEDS: LEVOTHYROXINE SODIUM 125MCG TABLET PO SCH (06:08)
[2018-06-07] MEDS: HYDRALAZINE HCL 25MG TABLET PO SCH ×3 (06:11→21:43)
[2018-06-07] MEDS: INSULIN LISPRO 100 UNITS/ML SUBCUT SCH ×4 (06:18→21:00)
[2018-06-07] MEDS: BLOOD SUGAR DIAGNOSTIC STRIP TEST SCH ×4 (06:18→21:43)
[2018-06-07 08:20] VITALS: BP 138/74
[2018-06-07] MEDS: FOLIC ACID/VITAMIN B COMP W-C TABLET PO SCH (09:01)
[2018-06-07] MEDS: FOLIC ACID 1MG TABLET PO SCH (09:01)
[2018-06-07] MEDS: LACTULOSE 20G/30ML UDC PO PRN (09:01)
[2018-06-07] MEDS: CLOPIDOGREL 75MG TABLET PO SCH (09:01)
[2018-06-07] MEDS: GABAPENTIN 300MG CAPSULE PO SCH ×3 (09:01→16:58)
[2018-06-07] MEDS: INDAPAMIDE 1.25MG TABLET PO SCH (09:01)
[2018-06-07] MEDS: FLUTICASONE PROPIONATE 50MCG/SPRAY BOTTLE BOTHNSTRLS SCH (09:01)
[2018-06-07] MEDS: DOCUSATE SODIUM 250MG CAPSULE PO SCH (09:02)
[2018-06-07] MEDS: LORATADINE 10MG TABLET PO SCH (09:02)
[2018-06-07] MEDS: ASPIRIN 325MG EC TABLET PO SCH (09:02)
[2018-06-07] MEDS: SERTRALINE HCL 25MG TABLET PO SCH (09:02)
[2018-06-07] MEDS: DILTIAZEM HCL 120MG CAPSULE CD 24HR PO SCH (09:02)
[2018-06-07] MEDS: LOSARTAN POTASSIUM 50 MG TABLET PO SCH (09:02)
[2018-06-07] MEDS: NYSTATIN POWDER 15GM TOP SCH ×2 (09:03→17:00)
[2018-06-07 10:07] VITALS: BP_SYST 129; BP_SYST 133; BP_DIAS 66; BP_DIAS 69
[2018-06-07 13:01] VITALS: BP 97/61
[2018-06-07] MEDS: EZETIMIBE 10MG TABLET PO SCH (16:58)
[2018-06-07 20:00] VITALS: BP_SYST 103; BP_SYST 97; BP_DIAS 58
[2018-06-07] MEDS: ATORVASTATIN CALCIUM 40MG TABLET PO SCH (21:43)
[2018-06-08] VITALS: BP 120/66
[2018-06-08] MEDS: MECLIZINE 25MG TABLET PO SCH ×3 (02:18→17:04)
[2018-06-08] MEDS: BLOOD SUGAR DIAGNOSTIC STRIP TEST SCH ×4 (06:21→20:53)
[2018-06-08] MEDS: HYDRALAZINE HCL 25MG TABLET PO SCH ×3 (06:21→21:19)
[2018-06-08] MEDS: GLIMEPIRIDE 1MG TABLET PO SCH (06:21)
[2018-06-08] MEDS: LEVOTHYROXINE SODIUM 125MCG TABLET PO SCH (06:21)
[2018-06-08] MEDS: INSULIN LISPRO 100 UNITS/ML SUBCUT SCH ×4 (06:22→20:53)
[2018-06-08 08:22] VITALS: BP 129/70
[2018-06-08] MEDS: GABAPENTIN 300MG CAPSULE PO SCH ×3 (08:52→17:04)
[2018-06-08] MEDS: CLOPIDOGREL 75MG TABLET PO SCH (08:52)
[2018-06-08] MEDS: FOLIC ACID/VITAMIN B COMP W-C TABLET PO SCH (08:53)
[2018-06-08] MEDS: INDAPAMIDE 1.25MG TABLET PO SCH (08:53)
[2018-06-08] MEDS: ASPIRIN 325MG EC TABLET PO SCH (08:53)
[2018-06-08] MEDS: FOLIC ACID 1MG TABLET PO SCH (08:53)
[2018-06-08] MEDS: LORATADINE 10MG TABLET PO SCH (08:53)
[2018-06-08] MEDS: SERTRALINE HCL 25MG TABLET PO SCH (08:53)
[2018-06-08] MEDS: LOSARTAN POTASSIUM 50 MG TABLET PO SCH (08:54)
[2018-06-08] MEDS: DOCUSATE SODIUM 250MG CAPSULE PO SCH (08:54)
[2018-06-08] MEDS: DILTIAZEM HCL 120MG CAPSULE CD 24HR PO SCH (08:54)
[2018-06-08] MEDS: LACTULOSE 20G/30ML UDC PO PRN (08:55)
[2018-06-08] MEDS: NYSTATIN POWDER 15GM TOP SCH ×2 (09:10→17:03)
[2018-06-08 16:17] LABS: CLARITY URINE TURBID (CLEAR); COLOR URINE DARK YELLOW (YELLOW); KETONES URINE TRACE (NEGATIVE); LEUKOCYTE ESTERASE URINE 3+ (NEGATIVE); NITRITE URINE NEGATIVE (NEGATIVE); OCCULT BLOOD URINE NEGATIVE (NEGATIVE); PH URINE 5.5 (4.5-8.0); PROTEIN URINE 3+ (NEGATIVE); SPECIFIC GRAVITY URINE 1.021 (1.005-1.030)
[2018-06-08] MEDS: EZETIMIBE 10MG TABLET PO SCH (17:03)
[2018-06-08 20:00] VITALS: BP 117/62
[2018-06-08] MEDS: ATORVASTATIN CALCIUM 40MG TABLET PO SCH (20:50)
[2018-06-09] MEDS: MECLIZINE 25MG TABLET PO SCH ×3 (01:26→17:06)
[2018-06-09] MEDS: HYDRALAZINE HCL 25MG TABLET PO SCH ×3 (06:02→21:03)
[2018-06-09] MEDS: LEVOTHYROXINE SODIUM 125MCG TABLET PO SCH (06:02)
[2018-06-09] MEDS: BLOOD SUGAR DIAGNOSTIC STRIP TEST SCH ×4 (06:02→20:46)
[2018-06-09] MEDS: GLIMEPIRIDE 1MG TABLET PO SCH (06:02)
[2018-06-09 06:20] LABS: BASOPHILS % 1.1 % (0.0-2.0); EOSINOPHILS % 2.8 % (0.0-5.0); HEMATOCRIT. 37.6 % (36.0-48.0); HEMOGLOBIN. 12.8 g/dL (12.0-16.0); LYMPHOCYTES % 25.3 % (20.0-50.0); MEAN CORPUSCULAR HEMOGLOBIN 30.3 pg (28.0-32.0); MEAN CORPUSCULAR VOLUME 89.1 fL (81.0-99.0); MEAN PLATELET VOLUME 7.5 fl (7.4-10.4); MONOCYTES % 9.5 % (2.0-8.0); NEUTROPHILS % 61.3 % (40.0-76.0); PLATELET 323 x1000/uL (130-400); RED BLOOD CELL COUNT 4.22 mill/uL (4.2-5.4); RED CELL DISTRIBUTION WIDTH 13.5 % (11.6-14.6)
[2018-06-09] MEDS: INSULIN LISPRO 100 UNITS/ML SUBCUT SCH ×4 (06:31→20:46)
[2018-06-09 08:02] VITALS: BP 127/62
[2018-06-09] MEDS: TRULICITY 1.5 MG/0.5 ML SQ SCH (09:07)
[2018-06-09] MEDS: DOCUSATE SODIUM 250MG CAPSULE PO SCH (09:11)
[2018-06-09] MEDS: GABAPENTIN 300MG CAPSULE PO SCH ×3 (09:11→17:06)
[2018-06-09] MEDS: FOLIC ACID 1MG TABLET PO SCH (09:11)
[2018-06-09] MEDS: SERTRALINE HCL 50MG TABLET PO SCH (09:11)
[2018-06-09] MEDS: ASPIRIN 325MG EC TABLET PO SCH (09:11)
[2018-06-09] MEDS: CLOPIDOGREL 75MG TABLET PO SCH (09:11)
[2018-06-09] MEDS: INDAPAMIDE 1.25MG TABLET PO SCH (09:12)
[2018-06-09] MEDS: LOSARTAN POTASSIUM 50 MG TABLET PO SCH (09:12)
[2018-06-09] MEDS: FOLIC ACID/VITAMIN B COMP W-C TABLET PO SCH (09:12)
[2018-06-09] MEDS: NYSTATIN POWDER 15GM TOP SCH ×2 (09:12→17:07)
[2018-06-09] MEDS: DILTIAZEM HCL 120MG CAPSULE CD 24HR PO SCH (09:12)
[2018-06-09] MEDS: LORATADINE 10MG TABLET PO SCH (09:12)
[2018-06-09] MEDS: EZETIMIBE 10MG TABLET PO SCH (17:06)
[2018-06-09 20:00] VITALS: BP 125/70
[2018-06-09] MEDS: ATORVASTATIN CALCIUM 40MG TABLET PO SCH (20:46)
[2018-06-10] MEDS: MECLIZINE 25MG TABLET PO SCH ×3 (02:19→18:07)
[2018-06-10] MEDS: BLOOD SUGAR DIAGNOSTIC STRIP TEST SCH ×4 (06:20→21:00)
[2018-06-10] MEDS: GLIMEPIRIDE 1MG TABLET PO SCH (06:20)
[2018-06-10] MEDS: HYDRALAZINE HCL 25MG TABLET PO SCH ×4 (06:20→23:06)
[2018-06-10] MEDS: LEVOTHYROXINE SODIUM 125MCG TABLET PO SCH (06:21)
[2018-06-10 08:00] VITALS: BP 141/74
[2018-06-10] MEDS: INSULIN LISPRO 100 UNITS/ML SUBCUT SCH ×4 (09:00→21:00)
[2018-06-10] MEDS: SERTRALINE HCL 50MG TABLET PO SCH (10:00)
[2018-06-10] MEDS: GABAPENTIN 300MG CAPSULE PO SCH ×3 (10:00→18:07)
[2018-06-10] MEDS: FOLIC ACID 1MG TABLET PO SCH (10:00)
[2018-06-10] MEDS: INDAPAMIDE 1.25MG TABLET PO SCH (10:00)
[2018-06-10] MEDS: CLOPIDOGREL 75MG TABLET PO SCH (10:00)
[2018-06-10] MEDS: ASPIRIN 325MG EC TABLET PO SCH (10:01)
[2018-06-10] MEDS: FOLIC ACID/VITAMIN B COMP W-C TABLET PO SCH (10:01)
[2018-06-10] MEDS: DILTIAZEM HCL 120MG CAPSULE CD 24HR PO SCH (10:01)
[2018-06-10] MEDS: DOCUSATE SODIUM 250MG CAPSULE PO SCH (10:02)
[2018-06-10] MEDS: NYSTATIN POWDER 15GM TOP SCH ×2 (10:02→18:08)
[2018-06-10] MEDS: LORATADINE 10MG TABLET PO SCH (10:02)
[2018-06-10] MEDS: LOSARTAN POTASSIUM 50 MG TABLET PO SCH (10:02)
[2018-06-10] MEDS ORDERED: LEVOFLOXACIN 500MG TABLET PO SCH (14:30)
[2018-06-10] MEDS: EZETIMIBE 10MG TABLET PO SCH (18:07)
[2018-06-10 20:00] VITALS: BP 90/53
[2018-06-10] MEDS: ATORVASTATIN CALCIUM 40MG TABLET PO SCH (21:00)
[2018-06-11] MEDS: MECLIZINE 25MG TABLET PO SCH ×3 (02:00→17:13)
[2018-06-11] MEDS: BLOOD SUGAR DIAGNOSTIC STRIP TEST SCH ×4 (06:55→20:03)
[2018-06-11] MEDS: GLIMEPIRIDE 1MG TABLET PO SCH (07:04)
[2018-06-11] MEDS: LEVOTHYROXINE SODIUM 125MCG TABLET PO SCH (07:04)
[2018-06-11 07:14] LABS: EOSINOPHILS % 1.8 % (0.0-5.0); HEMOGLOBIN. 12.6 g/dL (12.0-16.0); LYMPHOCYTES % 24.1 % (20.0-50.0); MEAN CORPUSCULAR HEMOGLOBIN 30.4 pg (28.0-32.0); MEAN CORPUSCULAR VOLUME 89.5 fL (81.0-99.0); MEAN PLATELET VOLUME 7.7 fl (7.4-10.4); MONOCYTES % 8.7 % (2.0-8.0); NEUTROPHILS % 64.4 % (40.0-76.0); PLATELET 300 x1000/uL (130-400); RED BLOOD CELL COUNT 4.13 mill/uL (4.2-5.4); RED CELL DISTRIBUTION WIDTH 13.1 % (11.6-14.6)
[2018-06-11] MEDS: DOCUSATE SODIUM 250MG CAPSULE PO SCH (11:58)
[2018-06-11] MEDS: CLOPIDOGREL 75MG TABLET PO SCH (11:58)
[2018-06-11] MEDS: GABAPENTIN 300MG CAPSULE PO SCH ×3 (11:58→19:57)
[2018-06-11] MEDS: FOLIC ACID/VITAMIN B COMP W-C TABLET PO SCH (11:58)
[2018-06-11] MEDS: LEVOFLOXACIN 250MG TABLET PO SCH (11:58)
[2018-06-11] MEDS: LORATADINE 10MG TABLET PO SCH (11:59)
[2018-06-11] MEDS: ASPIRIN 325MG EC TABLET PO SCH (11:59)
[2018-06-11] MEDS: INDAPAMIDE 1.25MG TABLET PO SCH (11:59)
[2018-06-11] MEDS: FOLIC ACID 1MG TABLET PO SCH (11:59)
[2018-06-11] MEDS: DILTIAZEM HCL 120MG CAPSULE CD 24HR PO SCH (12:00)
[2018-06-11] MEDS: LOSARTAN POTASSIUM 50 MG TABLET PO SCH (12:00)
[2018-06-11] MEDS: NYSTATIN POWDER 15GM TOP SCH ×2 (12:04→17:14)
[2018-06-11 12:32] LABS: CREATINE KINASE 32 IU/L (26-192)
[2018-06-11] MEDS: INSULIN LISPRO 100 UNITS/ML SUBCUT SCH ×3 (13:00→20:03)
[2018-06-11] MEDS: HYDRALAZINE HCL 25MG TABLET PO SCH ×2 (14:00→21:15)
[2018-06-11] MEDS: SERTRALINE HCL 50MG TABLET PO SCH (17:13)
[2018-06-11] MEDS: EZETIMIBE 10MG TABLET PO SCH (17:13)
[2018-06-11] MEDS: SODIUM CHLORIDE 0.45% 1,000 ML IV SCH (19:57)
[2018-06-11 20:00] VITALS: BP 151/93
[2018-06-11] MEDS: ATORVASTATIN CALCIUM 40MG TABLET PO SCH (20:03)
[2018-06-11] MEDS: BISACODYL 5MG TABLET PO PRN (20:07)
[2018-06-12] MEDS: MECLIZINE 25MG TABLET PO SCH ×4 (02:28→16:43)
[2018-06-12] MEDS: SODIUM CHLORIDE 0.45% 1,000 ML IV SCH ×2 (06:16→22:09)
[2018-06-12] MEDS: HYDRALAZINE HCL 25MG TABLET PO SCH ×2 (06:16→14:00)
[2018-06-12] MEDS: LEVOTHYROXINE SODIUM 125MCG TABLET PO SCH (06:17)
[2018-06-12] MEDS: GLIMEPIRIDE 1MG TABLET PO SCH (06:20)
[2018-06-12] MEDS: INSULIN LISPRO 100 UNITS/ML SUBCUT SCH ×4 (06:20→21:00)
[2018-06-12] MEDS: BLOOD SUGAR DIAGNOSTIC STRIP TEST SCH ×4 (06:20→21:00)
[2018-06-12 06:25] LABS: BASOPHILS % 1.3 % (0.0-2.0); EOSINOPHILS % 2.8 % (0.0-5.0); HEMATOCRIT. 38.4 % (36.0-48.0); HEMOGLOBIN. 13.1 g/dL (12.0-16.0); LYMPHOCYTES % 29.1 % (20.0-50.0); MEAN CORPUSCULAR HEMOGLOBIN 30.7 pg (28.0-32.0); MEAN PLATELET VOLUME 7.6 fl (7.4-10.4); MONOCYTES % 9.9 % (2.0-8.0); NEUTROPHILS % 56.9 % (40.0-76.0); PLATELET 298 x1000/uL (130-400); RED BLOOD CELL COUNT 4.27 mill/uL (4.2-5.4); RED CELL DISTRIBUTION WIDTH 13.3 % (11.6-14.6)
[2018-06-12 08:00] VITALS: BP 155/89
[2018-06-12] MEDS: NYSTATIN POWDER 15GM TOP SCH ×2 (09:32→16:36)
[2018-06-12] MEDS: LOSARTAN POTASSIUM 50 MG TABLET PO SCH (09:33)
[2018-06-12] MEDS: CLOPIDOGREL 75MG TABLET PO SCH (09:33)
[2018-06-12] MEDS: GABAPENTIN 300MG CAPSULE PO SCH ×3 (09:33→16:36)
[2018-06-12] MEDS: LORATADINE 10MG TABLET PO SCH (09:33)
[2018-06-12] MEDS: FOLIC ACID 1MG TABLET PO SCH (09:33)
[2018-06-12] MEDS: FOLIC ACID/VITAMIN B COMP W-C TABLET PO SCH (09:33)
[2018-06-12] MEDS: SERTRALINE HCL 50MG TABLET PO SCH (09:33)
[2018-06-12] MEDS: INDAPAMIDE 1.25MG TABLET PO SCH (09:33)
[2018-06-12] MEDS: DOCUSATE SODIUM 250MG CAPSULE PO SCH (09:33)
[2018-06-12] MEDS: DILTIAZEM HCL 120MG CAPSULE CD 24HR PO SCH (09:33)
[2018-06-12] MEDS: ASPIRIN 325MG EC TABLET PO SCH (09:34)
[2018-06-12] MEDS: LEVOFLOXACIN 250MG TABLET PO SCH (11:45)
[2018-06-12] MEDS: EZETIMIBE 10MG TABLET PO SCH (16:36)
[2018-06-12] MEDS ORDERED: MECLIZINE 25MG TABLET PO PRN (17:15)
[2018-06-12 20:00] VITALS: BP 109/61
[2018-06-12] MEDS: ATORVASTATIN CALCIUM 40MG TABLET PO SCH (22:08)
[2018-06-13] MEDS: BLOOD SUGAR DIAGNOSTIC STRIP TEST SCH ×4 (06:22→21:29)
[2018-06-13] MEDS: LEVOTHYROXINE SODIUM 125MCG TABLET PO SCH (06:23)
[2018-06-13] MEDS: GLIMEPIRIDE 1MG TABLET PO SCH (06:23)
[2018-06-13] MEDS: INSULIN LISPRO 100 UNITS/ML SUBCUT SCH ×4 (07:47→21:00)
[2018-06-13 08:00] VITALS: BP 119/62
[2018-06-13] MEDS: DILTIAZEM HCL 120MG CAPSULE CD 24HR PO SCH (08:23)
[2018-06-13] MEDS: INDAPAMIDE 1.25MG TABLET PO SCH (08:23)
[2018-06-13] MEDS: LORATADINE 10MG TABLET PO SCH (08:23)
[2018-06-13] MEDS: FOLIC ACID 1MG TABLET PO SCH (08:23)
[2018-06-13] MEDS: FOLIC ACID/VITAMIN B COMP W-C TABLET PO SCH (08:24)
[2018-06-13] MEDS: SERTRALINE HCL 50MG TABLET PO SCH (08:24)
[2018-06-13] MEDS: DOCUSATE SODIUM 250MG CAPSULE PO SCH (08:24)
[2018-06-13] MEDS: HYDRALAZINE HCL 25MG TABLET PO SCH ×2 (08:24→17:32)
[2018-06-13] MEDS: GABAPENTIN 300MG CAPSULE PO SCH ×3 (08:24→17:31)
[2018-06-13] MEDS: ASPIRIN 325MG EC TABLET PO SCH (08:24)
[2018-06-13] MEDS: CLOPIDOGREL 75MG TABLET PO SCH (08:24)
[2018-06-13] MEDS: LOSARTAN POTASSIUM 50 MG TABLET PO SCH (08:24)
[2018-06-13] MEDS: NYSTATIN POWDER 15GM TOP SCH ×2 (08:26→17:32)
[2018-06-13] MEDS ORDERED: NA PHOS,M-B/NA PHOS,DI-BA ENEMA 118ML PR NR (09:30)
[2018-06-13] MEDS: SODIUM CHLORIDE 0.45% 1,000 ML IV SCH (13:30)
[2018-06-13] MEDS: LEVOFLOXACIN 250MG TABLET PO SCH (14:18)
[2018-06-13] MEDS: EZETIMIBE 10MG TABLET PO SCH (17:31)
[2018-06-13 20:00] VITALS: BP 134/78
[2018-06-13] MEDS: ATORVASTATIN CALCIUM 40MG TABLET PO SCH (21:30)
[2018-06-14] MEDS: BLOOD SUGAR DIAGNOSTIC STRIP TEST SCH ×4 (06:09→21:15)
[2018-06-14] MEDS: GLIMEPIRIDE 1MG TABLET PO SCH (06:09)
[2018-06-14] MEDS: LEVOTHYROXINE SODIUM 125MCG TABLET PO SCH (06:09)
[2018-06-14] MEDS: SODIUM CHLORIDE 0.45% 1,000 ML IV SCH ×2 (06:14→21:56)
[2018-06-14] MEDS: INSULIN LISPRO 100 UNITS/ML SUBCUT SCH ×4 (06:45→21:00)
[2018-06-14 07:54] LABS: BASOPHILS % 1.3 % (0.0-2.0); EOSINOPHILS % 3.2 % (0.0-5.0); HEMATOCRIT. 38.3 % (36.0-48.0); HEMOGLOBIN. 12.9 g/dL (12.0-16.0); LYMPHOCYTES % 32.3 % (20.0-50.0); MEAN CORPUSCULAR HEMOGLOBIN 30.5 pg (28.0-32.0); MEAN CORPUSCULAR VOLUME 90.1 fL (81.0-99.0); MEAN PLATELET VOLUME 7.8 fl (7.4-10.4); MONOCYTES % 8.6 % (2.0-8.0); NEUTROPHILS % 54.6 % (40.0-76.0); PLATELET 276 x1000/uL (130-400); RED BLOOD CELL COUNT 4.25 mill/uL (4.2-5.4); RED CELL DISTRIBUTION WIDTH 13.5 % (11.6-14.6)
[2018-06-14 08:00] VITALS: BP 137/77
[2018-06-14] MEDS: DILTIAZEM HCL 120MG CAPSULE CD 24HR PO SCH (09:16)
[2018-06-14] MEDS: INDAPAMIDE 1.25MG TABLET PO SCH (09:16)
[2018-06-14] MEDS: CLOPIDOGREL 75MG TABLET PO SCH (09:17)
[2018-06-14] MEDS: ASPIRIN 325MG EC TABLET PO SCH (09:17)
[2018-06-14] MEDS: GABAPENTIN 300MG CAPSULE PO SCH ×3 (09:17→17:47)
[2018-06-14] MEDS: LOSARTAN POTASSIUM 50 MG TABLET PO SCH (09:17)
[2018-06-14] MEDS: FOLIC ACID 1MG TABLET PO SCH (09:17)
[2018-06-14] MEDS: HYDRALAZINE HCL 25MG TABLET PO SCH ×2 (09:17→17:48)
[2018-06-14] MEDS: SERTRALINE HCL 50MG TABLET PO SCH (09:17)
[2018-06-14] MEDS: FOLIC ACID/VITAMIN B COMP W-C TABLET PO SCH (09:17)
[2018-06-14] MEDS: LORATADINE 10MG TABLET PO SCH (09:17)
[2018-06-14] MEDS: DOCUSATE SODIUM 250MG CAPSULE PO SCH (09:17)
[2018-06-14] MEDS: NYSTATIN POWDER 15GM TOP SCH ×2 (09:41→17:48)
[2018-06-14] MEDS: LEVOFLOXACIN 250MG TABLET PO SCH (10:53)
[2018-06-14] MEDS ORDERED: LEVOFLOXACIN 250MG TABLET PO SCH (11:00)
[2018-06-14] MEDS: EZETIMIBE 10MG TABLET PO SCH (17:47)
[2018-06-14 20:00] VITALS: BP 123/68
[2018-06-14] MEDS: ATORVASTATIN CALCIUM 40MG TABLET PO SCH (21:15)
[2018-06-15] MEDS: BLOOD SUGAR DIAGNOSTIC STRIP TEST SCH ×4 (06:14→21:00)
[2018-06-15] MEDS: LEVOTHYROXINE SODIUM 125MCG TABLET PO SCH (06:14)
[2018-06-15] MEDS: GLIMEPIRIDE 1MG TABLET PO SCH (06:14)
[2018-06-15] MEDS: INSULIN LISPRO 100 UNITS/ML SUBCUT SCH ×4 (07:16→21:00)
[2018-06-15 08:35] VITALS: BP 182/92
[2018-06-15] MEDS: CLOPIDOGREL 75MG TABLET PO SCH (09:16)
[2018-06-15] MEDS: DOCUSATE SODIUM 250MG CAPSULE PO SCH (09:17)
[2018-06-15] MEDS: SERTRALINE HCL 50MG TABLET PO SCH (09:17)
[2018-06-15] MEDS: DILTIAZEM HCL 120MG CAPSULE CD 24HR PO SCH (09:17)
[2018-06-15] MEDS: LORATADINE 10MG TABLET PO SCH (09:17)
[2018-06-15] MEDS: ASPIRIN 325MG EC TABLET PO SCH (09:17)
[2018-06-15] MEDS: FOLIC ACID 1MG TABLET PO SCH (09:17)
[2018-06-15] MEDS: FOLIC ACID/VITAMIN B COMP W-C TABLET PO SCH (09:17)
[2018-06-15] MEDS: INDAPAMIDE 1.25MG TABLET PO SCH (09:17)
[2018-06-15] MEDS: LOSARTAN POTASSIUM 50 MG TABLET PO SCH (09:18)
[2018-06-15] MEDS: HYDRALAZINE HCL 25MG TABLET PO SCH ×2 (09:18→17:00)
[2018-06-15] MEDS: GABAPENTIN 300MG CAPSULE PO SCH ×3 (09:18→18:54)
[2018-06-15] MEDS: NYSTATIN POWDER 15GM TOP SCH ×2 (09:19→18:54)
[2018-06-15] MEDS: LEVOFLOXACIN 250MG TABLET PO SCH (11:55)
[2018-06-15] MEDS: SODIUM CHLORIDE 0.45% 1,000 ML IV SCH (15:30)
[2018-06-15] MEDS: EZETIMIBE 10MG TABLET PO SCH (18:54)
[2018-06-15 20:00] VITALS: BP 116/64
[2018-06-15] MEDS: ATORVASTATIN CALCIUM 40MG TABLET PO SCH (22:07)
[2018-06-16] MEDS: GLIMEPIRIDE 1MG TABLET PO SCH (06:05)
[2018-06-16] MEDS: LEVOTHYROXINE SODIUM 125MCG TABLET PO SCH (06:05)
[2018-06-16] MEDS: BLOOD SUGAR DIAGNOSTIC STRIP TEST SCH ×4 (06:05→21:00)
[2018-06-16] MEDS: INSULIN LISPRO 100 UNITS/ML SUBCUT SCH ×4 (06:06→21:00)
[2018-06-16 08:28] LABS: BASOPHILS % 1.1 % (0.0-2.0); HEMATOCRIT. 35.8 % (36.0-48.0); LYMPHOCYTES % 33.6 % (20.0-50.0); MEAN CORPUSCULAR HEMOGLOBIN 30.3 pg (28.0-32.0); MEAN CORPUSCULAR VOLUME 90.1 fL (81.0-99.0); MEAN PLATELET VOLUME 7.9 fl (7.4-10.4); NEUTROPHILS % 53.3 % (40.0-76.0); PLATELET 261 x1000/uL (130-400); RED BLOOD CELL COUNT 3.98 mill/uL (4.2-5.4); RED CELL DISTRIBUTION WIDTH 13.4 % (11.6-14.6)
[2018-06-16] MEDS: HYDRALAZINE HCL 25MG TABLET PO SCH ×2 (09:00→18:02)
[2018-06-16] MEDS: LOSARTAN POTASSIUM 50 MG TABLET PO SCH (10:17)
[2018-06-16] MEDS: DILTIAZEM HCL 120MG CAPSULE CD 24HR PO SCH (10:17)
[2018-06-16] MEDS: ASPIRIN 325MG EC TABLET PO SCH (10:17)
[2018-06-16] MEDS: DOCUSATE SODIUM 250MG CAPSULE PO SCH (10:17)
[2018-06-16] MEDS: SERTRALINE HCL 50MG TABLET PO SCH (10:17)
[2018-06-16] MEDS: INDAPAMIDE 1.25MG TABLET PO SCH (10:17)
[2018-06-16] MEDS: GABAPENTIN 300MG CAPSULE PO SCH ×3 (10:18→18:03)
[2018-06-16] MEDS: FOLIC ACID 1MG TABLET PO SCH (10:18)
[2018-06-16] MEDS: FOLIC ACID/VITAMIN B COMP W-C TABLET PO SCH (10:18)
[2018-06-16] MEDS: CLOPIDOGREL 75MG TABLET PO SCH (10:18)
[2018-06-16] MEDS: LORATADINE 10MG TABLET PO SCH (10:18)
[2018-06-16] MEDS: TRULICITY 1.5 MG/0.5 ML SQ SCH (10:19)
[2018-06-16] MEDS: NYSTATIN POWDER 15GM TOP SCH ×2 (10:20→17:00)
[2018-06-16] MEDS: LEVOFLOXACIN 250MG TABLET PO SCH (11:04)
[2018-06-16] MEDS: EZETIMIBE 10MG TABLET PO SCH (18:02)
[2018-06-16] MEDS: SODIUM CHLORIDE 0.45% 1,000 ML IV SCH (18:58)
[2018-06-16 20:00] VITALS: BP_SYST 124; BP_SYST 125; BP_DIAS 59; BP_DIAS 65
[2018-06-16] MEDS: ATORVASTATIN CALCIUM 40MG TABLET PO SCH (22:32)
[2018-06-17] MEDS: SODIUM CHLORIDE 0.45% 1,000 ML IV SCH ×2 (02:50→18:46)
[2018-06-17] MEDS: BLOOD SUGAR DIAGNOSTIC STRIP TEST SCH ×4 (06:12→21:58)
[2018-06-17] MEDS: LEVOTHYROXINE SODIUM 125MCG TABLET PO SCH (06:14)
[2018-06-17 08:31] LABS: BASOPHILS % 1.1 % (0.0-2.0); HEMATOCRIT. 37.6 % (36.0-48.0); HEMOGLOBIN. 12.5 g/dL (12.0-16.0); LYMPHOCYTES % 28.4 % (20.0-50.0); MEAN CORPUSCULAR HEMOGLOBIN 30.2 pg (28.0-32.0); MEAN CORPUSCULAR VOLUME 90.8 fL (81.0-99.0); MEAN PLATELET VOLUME 7.8 fl (7.4-10.4); MONOCYTES % 8.8 % (2.0-8.0); NEUTROPHILS % 58.7 % (40.0-76.0); PLATELET 259 x1000/uL (130-400); RED BLOOD CELL COUNT 4.15 mill/uL (4.2-5.4); RED CELL DISTRIBUTION WIDTH 13.6 % (11.6-14.6)
[2018-06-17 08:50] VITALS: BP 162/84
[2018-06-17] MEDS: INSULIN LISPRO 100 UNITS/ML SUBCUT SCH ×4 (09:00→21:00)
[2018-06-17] MEDS: SERTRALINE HCL 50MG TABLET PO SCH (10:27)
[2018-06-17] MEDS: CLOPIDOGREL 75MG TABLET PO SCH (10:27)
[2018-06-17] MEDS: DILTIAZEM HCL 120MG CAPSULE CD 24HR PO SCH (10:27)
[2018-06-17] MEDS: GABAPENTIN 300MG CAPSULE PO SCH ×3 (10:27→18:46)
[2018-06-17] MEDS: FOLIC ACID/VITAMIN B COMP W-C TABLET PO SCH (10:27)
[2018-06-17] MEDS: HYDRALAZINE HCL 25MG TABLET PO SCH ×2 (10:28→18:45)
[2018-06-17] MEDS: LEVOFLOXACIN 250MG TABLET PO SCH (10:28)
[2018-06-17] MEDS: ASPIRIN 325MG EC TABLET PO SCH (10:28)
[2018-06-17] MEDS: DOCUSATE SODIUM 250MG CAPSULE PO SCH (10:28)
[2018-06-17] MEDS: GLIMEPIRIDE 1MG TABLET PO SCH (10:28)
[2018-06-17] MEDS: INDAPAMIDE 1.25MG TABLET PO SCH (10:28)
[2018-06-17] MEDS: LORATADINE 10MG TABLET PO SCH (10:29)
[2018-06-17] MEDS: LOSARTAN POTASSIUM 50 MG TABLET PO SCH (10:29)
[2018-06-17] MEDS: FOLIC ACID 1MG TABLET PO SCH (10:29)
[2018-06-17] MEDS: EZETIMIBE 10MG TABLET PO SCH (18:46)
[2018-06-17 20:00] VITALS: BP 134/76
[2018-06-17] MEDS: ATORVASTATIN CALCIUM 40MG TABLET PO SCH (21:58)
[2018-06-18] MEDS: LEVOTHYROXINE SODIUM 125MCG TABLET PO SCH (06:22)
[2018-06-18] MEDS: GLIMEPIRIDE 1MG TABLET PO SCH (06:22)
[2018-06-18] MEDS: BLOOD SUGAR DIAGNOSTIC STRIP TEST SCH ×4 (06:22→20:22)
[2018-06-18 08:00] VITALS: BP 136/76
[2018-06-18] MEDS: INSULIN LISPRO 100 UNITS/ML SUBCUT SCH ×4 (09:00→20:22)
[2018-06-18] MEDS: CLOPIDOGREL 75MG TABLET PO SCH (09:23)
[2018-06-18] MEDS: SERTRALINE HCL 50MG TABLET PO SCH (09:23)
[2018-06-18] MEDS: INDAPAMIDE 1.25MG TABLET PO SCH (09:23)
[2018-06-18] MEDS: DILTIAZEM HCL 120MG CAPSULE CD 24HR PO SCH (09:23)
[2018-06-18] MEDS: LORATADINE 10MG TABLET PO SCH (09:24)
[2018-06-18] MEDS: DOCUSATE SODIUM 250MG CAPSULE PO SCH (09:24)
[2018-06-18] MEDS: GABAPENTIN 300MG CAPSULE PO SCH ×3 (09:24→17:45)
[2018-06-18] MEDS: LOSARTAN POTASSIUM 50 MG TABLET PO SCH (09:24)
[2018-06-18] MEDS: HYDRALAZINE HCL 25MG TABLET PO SCH ×2 (09:24→17:45)
[2018-06-18] MEDS: FOLIC ACID/VITAMIN B COMP W-C TABLET PO SCH (09:24)
[2018-06-18] MEDS: ASPIRIN 325MG EC TABLET PO SCH (09:24)
[2018-06-18] MEDS: FOLIC ACID 1MG TABLET PO SCH (09:24)
[2018-06-18] MEDS: SODIUM CHLORIDE 0.45% 1,000 ML IV SCH (10:25)
[2018-06-18] MEDS: EZETIMIBE 10MG TABLET PO SCH (17:45)
[2018-06-18 20:00] VITALS: BP 139/76
[2018-06-18] MEDS: ATORVASTATIN CALCIUM 40MG TABLET PO SCH (20:21)
[2018-06-19] MEDS: SODIUM CHLORIDE 0.45% 1,000 ML IV SCH ×2 (01:29→21:36)
[2018-06-19] MEDS: BLOOD SUGAR DIAGNOSTIC STRIP TEST SCH ×4 (06:01→21:37)
[2018-06-19] MEDS: GLIMEPIRIDE 1MG TABLET PO SCH (06:02)
[2018-06-19] MEDS: INSULIN LISPRO 100 UNITS/ML SUBCUT SCH ×4 (06:02→21:00)
[2018-06-19] MEDS: LEVOTHYROXINE SODIUM 125MCG TABLET PO SCH (06:02)
[2018-06-19 08:00] VITALS: BP 129/67
[2018-06-19] MEDS: INDAPAMIDE 1.25MG TABLET PO SCH (08:10)
[2018-06-19] MEDS: GABAPENTIN 300MG CAPSULE PO SCH ×3 (08:10→16:13)
[2018-06-19] MEDS: CLOPIDOGREL 75MG TABLET PO SCH (08:10)
[2018-06-19] MEDS: SERTRALINE HCL 50MG TABLET PO SCH (08:10)
[2018-06-19] MEDS: ASPIRIN 325MG EC TABLET PO SCH (08:10)
[2018-06-19] MEDS: LORATADINE 10MG TABLET PO SCH (08:10)
[2018-06-19] MEDS: FOLIC ACID 1MG TABLET PO SCH (08:10)
[2018-06-19] MEDS: DOCUSATE SODIUM 250MG CAPSULE PO SCH (08:10)
[2018-06-19] MEDS: FOLIC ACID/VITAMIN B COMP W-C TABLET PO SCH (08:10)
[2018-06-19] MEDS: DILTIAZEM HCL 120MG CAPSULE CD 24HR PO SCH (08:11)
[2018-06-19] MEDS: HYDRALAZINE HCL 25MG TABLET PO SCH ×2 (08:12→16:13)
[2018-06-19] MEDS: LOSARTAN POTASSIUM 50 MG TABLET PO SCH (08:12)
[2018-06-19] MEDS: EZETIMIBE 10MG TABLET PO SCH (16:13)
[2018-06-19 20:00] VITALS: BP 106/61
[2018-06-19] MEDS: ATORVASTATIN CALCIUM 40MG TABLET PO SCH (21:37)
[2018-06-20] MEDS: BLOOD SUGAR DIAGNOSTIC STRIP TEST SCH ×3 (06:01→17:29)
[2018-06-20] MEDS: LEVOTHYROXINE SODIUM 125MCG TABLET PO SCH (06:04)
[2018-06-20] MEDS: GABAPENTIN 300MG CAPSULE PO SCH ×3 (08:05→17:28)
[2018-06-20] MEDS: INDAPAMIDE 1.25MG TABLET PO SCH (08:05)
[2018-06-20] MEDS: FOLIC ACID/VITAMIN B COMP W-C TABLET PO SCH (08:05)
[2018-06-20] MEDS: ASPIRIN 325MG EC TABLET PO SCH (08:05)
[2018-06-20] MEDS: LORATADINE 10MG TABLET PO SCH (08:05)
[2018-06-20] MEDS: LOSARTAN POTASSIUM 50 MG TABLET PO SCH (08:05)
[2018-06-20] MEDS: SERTRALINE HCL 50MG TABLET PO SCH (08:05)
[2018-06-20] MEDS: CLOPIDOGREL 75MG TABLET PO SCH (08:05)
[2018-06-20] MEDS: FOLIC ACID 1MG TABLET PO SCH (08:05)
[2018-06-20] MEDS: DOCUSATE SODIUM 250MG CAPSULE PO SCH (08:06)
[2018-06-20] MEDS: GLIMEPIRIDE 1MG TABLET PO SCH (08:06)
[2018-06-20] MEDS: DILTIAZEM HCL 120MG CAPSULE CD 24HR PO SCH (08:06)
[2018-06-20] MEDS: HYDRALAZINE HCL 25MG TABLET PO SCH ×2 (08:06→17:28)
[2018-06-20] MEDS: INSULIN LISPRO 100 UNITS/ML SUBCUT SCH ×3 (08:07→17:00)
[2018-06-20 08:42] VITALS: BP 151/68
[2018-06-20] MEDS: SODIUM CHLORIDE 0.45% 1,000 ML IV SCH (12:36)
[2018-06-20] MEDS: EZETIMIBE 10MG TABLET PO SCH (17:28)
[2018-06-20] MEDS ORDERED: BISACODYL 5MG TABLET PO PRN (19:45)
[2018-06-20 20:00] VITALS: BP 136/64
[2018-06-20] MEDS ORDERED: ACETAMINOPHEN 325MG TABLET PO PRN (20:30)
[2018-06-20] MEDS ORDERED: BLOOD SUGAR DIAGNOSTIC STRIP TEST SCH (21:00)
[2018-06-20] MEDS ORDERED: ATORVASTATIN CALCIUM 40MG TABLET PO SCH (21:00)
[2018-06-20] MEDS ORDERED: INSULIN LISPRO 100 UNITS/ML SUBCUT SCH (21:00)
[2018-06-21] MEDS ORDERED: ACETAMINOPHEN 325MG TABLET PO PRN (03:00)
[2018-06-21] MEDS ORDERED: DEXTROSE 50% WATER 50ML SYRINGE IV PRN (03:00)
[2018-06-21] MEDS: SODIUM CHLORIDE 0.45% 1,000 ML IV SCH ×2 (04:38→21:09)
[2018-06-21] MEDS: BLOOD SUGAR DIAGNOSTIC STRIP TEST SCH ×4 (06:00→21:04)
[2018-06-21] MEDS: INSULIN LISPRO 100 UNITS/ML SUBCUT SCH ×4 (06:01→21:00)
[2018-06-21] MEDS: GLIMEPIRIDE 1MG TABLET PO SCH (06:29)
[2018-06-21] MEDS ORDERED: LEVOTHYROXINE SODIUM 125MCG TABLET PO SCH (07:00)
[2018-06-21 08:00] VITALS: BP 121/82
[2018-06-21] MEDS: LOSARTAN POTASSIUM 50 MG TABLET PO SCH (08:57)
[2018-06-21] MEDS: SERTRALINE HCL 50MG TABLET PO SCH (08:57)
[2018-06-21] MEDS: LACTULOSE 20G/30ML UDC PO PRN (08:57)
[2018-06-21] MEDS: DOCUSATE SODIUM 250MG CAPSULE PO SCH (08:58)
[2018-06-21] MEDS: DILTIAZEM HCL 120MG CAPSULE CD 24HR PO SCH (08:58)
[2018-06-21] MEDS: LORATADINE 10MG TABLET PO SCH (08:58)
[2018-06-21] MEDS: HYDRALAZINE HCL 25MG TABLET PO SCH (08:59)
[2018-06-21] MEDS: FOLIC ACID/VITAMIN B COMP W-C TABLET PO SCH (08:59)
[2018-06-21] MEDS ORDERED: CLOPIDOGREL 75MG TABLET PO SCH ×2 (09:00)
[2018-06-21] MEDS ORDERED: FOLIC ACID 1MG TABLET PO SCH ×2 (09:00)
[2018-06-21] MEDS ORDERED: GABAPENTIN 300MG CAPSULE PO SCH ×2 (09:00)
[2018-06-21] MEDS ORDERED: DOCUSATE SODIUM 250MG CAPSULE PO SCH (09:00)
[2018-06-21] MEDS ORDERED: INDAPAMIDE 1.25MG TABLET PO SCH ×2 (09:00)
[2018-06-21] MEDS ORDERED: FOLIC ACID/VITAMIN B COMP W-C TABLET PO SCH (09:00)
[2018-06-21] MEDS ORDERED: ASPIRIN 325MG EC TABLET PO SCH ×2 (09:00)
[2018-06-21] MEDS: EZETIMIBE 10MG TABLET PO SCH (16:33)
[2018-06-21] MEDS ORDERED: EZETIMIBE 10MG TABLET PO SCH (17:00)
[2018-06-21 20:00] VITALS: BP 133/70
[2018-06-21] MEDS: ATORVASTATIN CALCIUM 40MG TABLET PO SCH (21:04)
[2018-06-22] MEDS: BLOOD SUGAR DIAGNOSTIC STRIP TEST SCH ×4 (05:58→21:00)
[2018-06-22] MEDS: INSULIN LISPRO 100 UNITS/ML SUBCUT SCH ×4 (05:58→21:00)
[2018-06-22] MEDS: GLIMEPIRIDE 1MG TABLET PO SCH (06:00)
[2018-06-22 08:00] VITALS: BP 154/73
[2018-06-22] MEDS: HYDRALAZINE HCL 25MG TABLET PO SCH (09:37)
[2018-06-22] MEDS: FOLIC ACID/VITAMIN B COMP W-C TABLET PO SCH (09:37)
[2018-06-22] MEDS: DOCUSATE SODIUM 250MG CAPSULE PO SCH (09:37)
[2018-06-22] MEDS: LOSARTAN POTASSIUM 50 MG TABLET PO SCH (09:38)
[2018-06-22] MEDS: LORATADINE 10MG TABLET PO SCH (09:38)
[2018-06-22] MEDS: SERTRALINE HCL 50MG TABLET PO SCH (09:38)
[2018-06-22 13:34] LABS: BASOPHILS % 1.1 % (0.0-2.0); EOSINOPHILS % 1.4 % (0.0-5.0); HEMOGLOBIN. 14.3 g/dL (12.0-16.0); LYMPHOCYTES % 24.5 % (20.0-50.0); MEAN CORPUSCULAR HEMOGLOBIN 30.7 pg (28.0-32.0); MEAN CORPUSCULAR VOLUME 90.7 fL (81.0-99.0); MEAN PLATELET VOLUME 7.5 fl (7.4-10.4); MONOCYTES % 5.6 % (2.0-8.0); NEUTROPHILS % 67.4 % (40.0-76.0); PLATELET 283 x1000/uL (130-400); RED BLOOD CELL COUNT 4.64 mill/uL (4.2-5.4); RED CELL DISTRIBUTION WIDTH 13.6 % (11.6-14.6)
[2018-06-22 13:53] LABS: CHLORIDE 111 mEq/L (98-107)
[2018-06-22] MEDS: SULFAMETHOXAZOLE/TRIMETHOPRIM 800/160MG TABLET PO SCH ×2 (15:12→22:38)
[2018-06-22] MEDS: SODIUM CHLORIDE 0.45% 1,000 ML IV SCH (15:14)
[2018-06-22] MEDS: EZETIMIBE 10MG TABLET PO SCH (17:45)
[2018-06-22 20:00] VITALS: BP 145/90
[2018-06-22] MEDS: ATORVASTATIN CALCIUM 40MG TABLET PO SCH (22:38)
[2018-06-22 22:51] LABS: CLARITY URINE CLEAR (CLEAR); COLOR URINE YELLOW (YELLOW); KETONES URINE NEGATIVE (NEGATIVE); LEUKOCYTE ESTERASE URINE NEGATIVE (NEGATIVE); NITRITE URINE NEGATIVE (NEGATIVE); OCCULT BLOOD URINE NEGATIVE (NEGATIVE); PH URINE 5.5 (4.5-8.0); PROTEIN URINE 3+ (NEGATIVE); SPECIFIC GRAVITY URINE 1.016 (1.005-1.030); UROBILINOGEN URINE 0.2 E.U./dL (0.2-1.0)
[2018-06-23] MEDS: BLOOD SUGAR DIAGNOSTIC STRIP TEST SCH ×4 (06:30→20:15)
[2018-06-23] MEDS: GLIMEPIRIDE 1MG TABLET PO SCH (06:52)
[2018-06-23 08:08] VITALS: BP 172/86
[2018-06-23] MEDS: HYDRALAZINE HCL 25MG TABLET PO SCH (08:37)
[2018-06-23] MEDS: SODIUM CHLORIDE 0.45% 1,000 ML IV SCH (08:37)
[2018-06-23] MEDS: LOSARTAN POTASSIUM 50 MG TABLET PO SCH (08:37)
[2018-06-23] MEDS: SULFAMETHOXAZOLE/TRIMETHOPRIM 800/160MG TABLET PO SCH (08:37)
[2018-06-23] MEDS: LORATADINE 10MG TABLET PO SCH (08:38)
[2018-06-23] MEDS: SERTRALINE HCL 50MG TABLET PO SCH (08:38)
[2018-06-23] MEDS: INSULIN LISPRO 100 UNITS/ML SUBCUT SCH ×4 (08:50→20:15)
[2018-06-23] MEDS: TRULICITY 1.5 MG SQ SCH (09:37)
[2018-06-23] MEDS: EZETIMIBE 10MG TABLET PO SCH (17:02)
[2018-06-23 20:00] VITALS: BP 150/73
[2018-06-23] MEDS: ATORVASTATIN CALCIUM 40MG TABLET PO SCH (20:15)
[2018-06-24] MEDS: GLIMEPIRIDE 1MG TABLET PO SCH (06:22)
[2018-06-24] MEDS: INSULIN LISPRO 100 UNITS/ML SUBCUT SCH ×4 (06:22→21:00)
[2018-06-24] MEDS: BLOOD SUGAR DIAGNOSTIC STRIP TEST SCH ×4 (06:22→21:07)
[2018-06-24 07:03] LABS: CLARITY URINE CLEAR (CLEAR); COLOR URINE YELLOW (YELLOW); KETONES URINE NEGATIVE (NEGATIVE); LEUKOCYTE ESTERASE URINE NEGATIVE (NEGATIVE); NITRITE URINE NEGATIVE (NEGATIVE); OCCULT BLOOD URINE NEGATIVE (NEGATIVE); PH URINE 5.5 (4.5-8.0); PROTEIN URINE 2+ (NEGATIVE); SPECIFIC GRAVITY URINE 1.016 (1.005-1.030); UROBILINOGEN URINE 0.2 E.U./dL (0.2-1.0)
[2018-06-24 08:00] VITALS: BP 159/90
[2018-06-24] MEDS: LORATADINE 10MG TABLET PO SCH (09:14)
[2018-06-24] MEDS: HYDRALAZINE HCL 25MG TABLET PO SCH ×2 (09:14→16:56)
[2018-06-24] MEDS: SERTRALINE HCL 50MG TABLET PO SCH (09:14)
[2018-06-24] MEDS: LOSARTAN POTASSIUM 50 MG TABLET PO SCH (09:14)
[2018-06-24] MEDS: DOCUSATE SODIUM 250MG CAPSULE PO SCH (11:05)
[2018-06-24] MEDS: FOLIC ACID/VITAMIN B COMP W-C TABLET PO SCH (11:05)
[2018-06-24] MEDS: ASPIRIN 325MG EC TABLET PO SCH (11:05)
[2018-06-24] MEDS: CLOPIDOGREL 75MG TABLET PO SCH (11:05)
[2018-06-24] MEDS: GABAPENTIN 300MG CAPSULE PO SCH ×2 (13:45→21:07)
[2018-06-24] MEDS: EZETIMIBE 10MG TABLET PO SCH (16:56)
[2018-06-24 20:00] VITALS: BP 131/80
[2018-06-24] MEDS: ATORVASTATIN CALCIUM 40MG TABLET PO SCH (21:07)
[2018-06-25] MEDS: GABAPENTIN 300MG CAPSULE PO SCH ×3 (06:12→21:35)
[2018-06-25] MEDS: GLIMEPIRIDE 1MG TABLET PO SCH (06:12)
[2018-06-25] MEDS: BISACODYL 5MG TABLET PO PRN (06:12)
[2018-06-25] MEDS: BLOOD SUGAR DIAGNOSTIC STRIP TEST SCH ×4 (06:14→20:30)
[2018-06-25] MEDS: INSULIN LISPRO 100 UNITS/ML SUBCUT SCH ×4 (06:14→20:30)
[2018-06-25 08:00] VITALS: BP 142/77
[2018-06-25] MEDS: CLOPIDOGREL 75MG TABLET PO SCH (09:23)
[2018-06-25] MEDS: HYDRALAZINE HCL 25MG TABLET PO SCH ×2 (09:23→16:38)
[2018-06-25] MEDS: SERTRALINE HCL 50MG TABLET PO SCH (09:23)
[2018-06-25] MEDS: FOLIC ACID/VITAMIN B COMP W-C TABLET PO SCH (09:23)
[2018-06-25] MEDS: DOCUSATE SODIUM 250MG CAPSULE PO SCH (09:23)
[2018-06-25] MEDS: LORATADINE 10MG TABLET PO SCH (09:23)
[2018-06-25] MEDS: LOSARTAN POTASSIUM 50 MG TABLET PO SCH (09:23)
[2018-06-25] MEDS: ASPIRIN 325MG EC TABLET PO SCH (09:24)
[2018-06-25] MEDS: EZETIMIBE 10MG TABLET PO SCH (16:38)
[2018-06-25 20:00] VITALS: BP_SYST 132; BP_SYST 98; BP_DIAS 60; BP_DIAS 65
[2018-06-25] MEDS: ATORVASTATIN CALCIUM 40MG TABLET PO SCH (20:30)
[2018-06-26] MEDS: GABAPENTIN 300MG CAPSULE PO SCH ×3 (06:01→21:38)
[2018-06-26] MEDS: INSULIN LISPRO 100 UNITS/ML SUBCUT SCH ×4 (06:04→21:00)
[2018-06-26] MEDS: BLOOD SUGAR DIAGNOSTIC STRIP TEST SCH ×4 (06:04→21:38)
[2018-06-26] MEDS: GLIMEPIRIDE 1MG TABLET PO SCH (06:07)
[2018-06-26 08:25] VITALS: BP 154/82
[2018-06-26] MEDS: CLOPIDOGREL 75MG TABLET PO SCH (09:22)
[2018-06-26] MEDS: LORATADINE 10MG TABLET PO SCH (09:22)
[2018-06-26] MEDS: ASPIRIN 325MG EC TABLET PO SCH (09:22)
[2018-06-26] MEDS: DOCUSATE SODIUM 250MG CAPSULE PO SCH (09:22)
[2018-06-26] MEDS: FOLIC ACID/VITAMIN B COMP W-C TABLET PO SCH (09:22)
[2018-06-26] MEDS: SERTRALINE HCL 50MG TABLET PO SCH (09:22)
[2018-06-26] MEDS: HYDRALAZINE HCL 25MG TABLET PO SCH ×2 (09:22→16:42)
[2018-06-26] MEDS: LOSARTAN POTASSIUM 50 MG TABLET PO SCH (09:23)
[2018-06-26] MEDS: EZETIMIBE 10MG TABLET PO SCH (16:42)
[2018-06-26 20:00] VITALS: BP 113/69
[2018-06-26] MEDS: ATORVASTATIN CALCIUM 40MG TABLET PO SCH (21:38)
[2018-06-27] MEDS: BLOOD SUGAR DIAGNOSTIC STRIP TEST SCH ×4 (06:07→21:00)
[2018-06-27] MEDS: GABAPENTIN 300MG CAPSULE PO SCH ×3 (06:08→22:10)
[2018-06-27] MEDS: INSULIN LISPRO 100 UNITS/ML SUBCUT SCH ×4 (06:08→21:00)
[2018-06-27] MEDS: GLIMEPIRIDE 1MG TABLET PO SCH (06:08)
[2018-06-27] MEDS: HYDRALAZINE HCL 25MG TABLET PO SCH ×2 (08:42→17:56)
[2018-06-27 08:47] VITALS: BP 130/77
[2018-06-27] MEDS: FOLIC ACID/VITAMIN B COMP W-C TABLET PO SCH (08:47)
[2018-06-27] MEDS: DOCUSATE SODIUM 250MG CAPSULE PO SCH (08:47)
[2018-06-27] MEDS: ASPIRIN 325MG EC TABLET PO SCH (08:47)
[2018-06-27] MEDS: LOSARTAN POTASSIUM 50 MG TABLET PO SCH (08:56)
[2018-06-27] MEDS: CLOPIDOGREL 75MG TABLET PO SCH (08:56)
[2018-06-27] MEDS: SERTRALINE HCL 50MG TABLET PO SCH (08:56)
[2018-06-27] MEDS: EZETIMIBE 10MG TABLET PO SCH (17:56)
[2018-06-27 20:00] VITALS: BP 117/67
[2018-06-27] MEDS: ATORVASTATIN CALCIUM 40MG TABLET PO SCH (22:09)
[2018-06-28] MEDS: GABAPENTIN 300MG CAPSULE PO SCH ×3 (05:25→21:55)
[2018-06-28] MEDS: GLIMEPIRIDE 1MG TABLET PO SCH (05:57)
[2018-06-28] MEDS: BLOOD SUGAR DIAGNOSTIC STRIP TEST SCH ×4 (05:57→21:55)
[2018-06-28 08:00] VITALS: BP 113/70
[2018-06-28] MEDS: DOCUSATE SODIUM 250MG CAPSULE PO SCH (08:16)
[2018-06-28] MEDS: HYDRALAZINE HCL 25MG TABLET PO SCH ×2 (08:16→16:56)
[2018-06-28] MEDS: CLOPIDOGREL 75MG TABLET PO SCH (08:16)
[2018-06-28] MEDS: SERTRALINE HCL 50MG TABLET PO SCH (08:16)
[2018-06-28] MEDS: FOLIC ACID/VITAMIN B COMP W-C TABLET PO SCH (08:16)
[2018-06-28] MEDS: ASPIRIN 325MG EC TABLET PO SCH (08:16)
[2018-06-28] MEDS: LOSARTAN POTASSIUM 50 MG TABLET PO SCH (08:16)
[2018-06-28] MEDS: INSULIN LISPRO 100 UNITS/ML SUBCUT SCH ×4 (08:32→21:00)
[2018-06-28] MEDS: EZETIMIBE 10MG TABLET PO SCH (16:55)
[2018-06-28 19:00] VITALS: BP 126/70
[2018-06-28 21:00] VITALS: BP 125/62
[2018-06-28] MEDS: ATORVASTATIN CALCIUM 40MG TABLET PO SCH (21:55)
[2018-06-29] MEDS: GABAPENTIN 300MG CAPSULE PO SCH ×3 (05:55→21:00)
[2018-06-29] MEDS: BLOOD SUGAR DIAGNOSTIC STRIP TEST SCH ×4 (06:26→21:04)
[2018-06-29] MEDS: INSULIN LISPRO 100 UNITS/ML SUBCUT SCH ×4 (06:26→21:00)
[2018-06-29] MEDS: GLIMEPIRIDE 1MG TABLET PO SCH (06:26)
[2018-06-29 08:00] VITALS: BP 171/91
[2018-06-29 08:01] VITALS: BP 145/93
[2018-06-29] MEDS: DOCUSATE SODIUM 250MG CAPSULE PO SCH (08:02)
[2018-06-29] MEDS: CLOPIDOGREL 75MG TABLET PO SCH (08:02)
[2018-06-29] MEDS: SERTRALINE HCL 50MG TABLET PO SCH (08:02)
[2018-06-29] MEDS: FOLIC ACID/VITAMIN B COMP W-C TABLET PO SCH (08:02)
[2018-06-29] MEDS: LOSARTAN POTASSIUM 50 MG TABLET PO SCH (08:02)
[2018-06-29] MEDS: HYDRALAZINE HCL 25MG TABLET PO SCH ×2 (08:02→17:50)
[2018-06-29] MEDS: ASPIRIN 325MG EC TABLET PO SCH (08:02)
[2018-06-29] MEDS: ASCORBIC ACID 250 MG TABLET PO SCH ×2 (14:58→21:00)
[2018-06-29] MEDS: ZINC SULFATE 220 MG ( 50 ) CAPSULE PO SCH (14:59)
[2018-06-29] MEDS: EZETIMIBE 10MG TABLET PO SCH (17:48)
[2018-06-29 20:00] VITALS: BP 101/69
[2018-06-29] MEDS: ATORVASTATIN CALCIUM 40MG TABLET PO SCH (21:00)
[2018-06-29] MEDS: BISACODYL 5MG TABLET PO PRN (21:00)
[2018-06-30] MEDS: GABAPENTIN 300MG CAPSULE PO SCH ×3 (05:44→19:50)
[2018-06-30] MEDS: BLOOD SUGAR DIAGNOSTIC STRIP TEST SCH ×4 (05:44→19:47)
[2018-06-30] MEDS: INSULIN LISPRO 100 UNITS/ML SUBCUT SCH ×4 (06:16→19:47)
[2018-06-30 08:00] VITALS: BP 134/75
[2018-06-30] MEDS: CLOPIDOGREL 75MG TABLET PO SCH (08:40)
[2018-06-30] MEDS: ASPIRIN 325MG EC TABLET PO SCH (08:40)
[2018-06-30] MEDS: DOCUSATE SODIUM 250MG CAPSULE PO SCH (08:40)
[2018-06-30] MEDS: FOLIC ACID/VITAMIN B COMP W-C TABLET PO SCH (08:40)
[2018-06-30] MEDS: ZINC SULFATE 220 MG ( 50 ) CAPSULE PO SCH (08:40)
[2018-06-30] MEDS: ASCORBIC ACID 250 MG TABLET PO SCH ×2 (08:41→19:47)
[2018-06-30] MEDS: HYDRALAZINE HCL 25MG TABLET PO SCH ×2 (08:41→16:51)
[2018-06-30] MEDS: GLIMEPIRIDE 1MG TABLET PO SCH (08:43)
[2018-06-30] MEDS: TRULICITY 1.5 MG SQ SCH (08:43)
[2018-06-30] MEDS ORDERED: SERTRALINE HCL 50MG TABLET PO SCH (09:00)
[2018-06-30] MEDS ORDERED: LOSARTAN POTASSIUM 50 MG TABLET PO SCH (09:00)
[2018-06-30 14:36] VITALS: BP 134/75
[2018-06-30] MEDS: EZETIMIBE 10MG TABLET PO SCH (16:52)
[2018-06-30] MEDS: ATORVASTATIN CALCIUM 40MG TABLET PO SCH (19:46)
[2018-06-30 20:00] VITALS: BP 117/67
== END 2018-06-30 20:00 | DRG 64 ==
PROVIDERS: ADMIT Psychiatry & Neurology Neurology; ATTEND Internal Medicine Geriatric Medicine
DX: I63.9 Cerebral infarction, unspecified (principal); A41.9 Sepsis, unspecified organism; N17.9 Acute kidney failure, unspecified; N39.0 Urinary tract infection, site not specified; G81.94 Hemiplegia, unspecified affecting left nondominant side; R53.81 Other malaise; E78.5 Hyperlipidemia, unspecified; E05.90 Thyrotoxicosis, unspecified without thyrotoxic crisis or storm; M10.9 Gout, unspecified; E11.42 Type 2 diabetes mellitus with diabetic polyneuropathy; R15.9 Full incontinence of feces; R32 Unspecified urinary incontinence; H53.2 Diplopia; R27.0 Ataxia, unspecified; Z60.2 Problems related to living alone; E03.9 Hypothyroidism, unspecified; E66.01 Morbid (severe) obesity due to excess calories; L89.220 Pressure ulcer of left hip, unstageable; E11.65 Type 2 diabetes mellitus with hyperglycemia; F32.9 Major depressive disorder, single episode, unspecified; F41.9 Anxiety disorder, unspecified; F06.32 Mood disorder due to known physiological condition with major depressive-like episode; F01.50 Vascular dementia, unspecified severity, without behavioral disturbance, psychotic disturbance, mood disturbance, and anxiety; H49.20 Sixth [abducent] nerve palsy, unspecified eye; I12.9 Hypertensive chronic kidney disease with stage 1 through stage 4 chronic kidney disease, or unspecified chronic kidney disease; N18.9 Chronic kidney disease, unspecified; G90.8 Other disorders of autonomic nervous system; E86.0 Dehydration; E11.22 Type 2 diabetes mellitus with diabetic chronic kidney disease; K59.00 Constipation, unspecified; B96.20 Unspecified Escherichia coli [E. coli] as the cause of diseases classified elsewhere; R80.9 Proteinuria, unspecified; Z87.440 Personal history of urinary (tract) infections; Z85.528 Personal history of other malignant neoplasm of kidney; Z90.5 Acquired absence of kidney; Z91.041 Radiographic dye allergy status; Z88.8 Allergy status to other drugs, medicaments and biological substances; Z79.899 Other long term (current) drug therapy; Z79.82 Long term (current) use of aspirin; Z79.02 Long term (current) use of antithrombotics/antiplatelets; Z91.013 Allergy to seafood; Z79.1 Long term (current) use of non-steroidal anti-inflammatories (NSAID); Z68.37 Body mass index [BMI] 37.0-37.9, adult
CPT/HCPCS: 36415; 74018; 76770; 80048; 80061; 82550; 82570; 82607; 82746; 82962; 83036; 83605; 83735; 84100; 84300; 87077; 87186; 92523; 92610; 93005; 93970; 97110; 97112; 97116; 97127; 97162; 97166; 97530; 97535; A4565; A6261; C1893; J1815; J2405; J7030; J8597